=== PATIENT | male | born 1980 ===

== ENCOUNTER 2021-08-01 07:45 | Outpatient (REF) | payer OTHER, SELFPAY ==
[2021-08-01 08:02] LABS: MANUAL DIFF FLAG NO
[2021-08-01 08:18] LABS: Basophils Percent Auto 0.6 % (0-2); Eosinophils Absolute Auto 0.2 X10*3/uL (0.0-0.4); Eosinophils Percent Auto 2.2 % (0-4); Hemoglobin 16.1 g/dl (14.0-18.0); Imm Gran Abs Auto 0.03 X10*3/uL (0.00-0.03); Imm Gran Pct Auto 0.4 % (0.0-0.4); Lymphocytes Absolute Auto 2.1 X10*3/uL (1.2-4.9); Lymphocytes Percent Auto 30.6 % (20-40); Mean Corpuscular HGB Conc 33.5 g/dl (31.0-36.0); Mean Corpuscular Hemoglobin 29.8 pg (27.0-33.0); Mean Corpuscular Volume 88.7 fL (80.0-98.0); Mean Platelet Volume 8.7 fL (9.4-12.4); Monocytes Absolute Auto 0.4 X10*3/uL (0.1-1.2); Monocytes Percent Auto 6.4 % (2-11); Neutrophils Absolute Auto 4.1 x10*3/uL (2.0-8.3); Neutrophils Percent Auto 59.8 % (45-73); Platelet Count 219 X10*3/uL (160-400); Red Blood Count 5.41 X10*6/uL (4.60-5.80); Red Cell Distribution Width 12.1 % (11.0-16.0); White Blood Count 6.9 X10*3/uL (4.8-10.8)
[2021-08-01 08:31] LABS: Estimated Average Glucose 123 mg/dL; Hemoglobin A1c % 5.9 %
[2021-08-01 08:44] LABS: Alanine Aminotransferase 44 U/L (0-40); Albumin Level 3.9 g/dL (3.5-5.0); Alkaline Phosphatase 82 U/L (39-117); Anion Gap 14 (12-20); Aspartate Amino Transferase 29 U/L (5-37); Bilirubin Total 1.2 mg/dL (0.0-1.0); Blood Urea Nitrogen 12 mg/dL (9-16); Calcium 8.8 mg/dL (8.4-10.2); Carbon Dioxide 27 mmol/L (22-29); Chloride 104 mmol/L (96-108); Cholesterol 159 mg/dL; Estimated Glomerular Filt Rate > 60; Glucose Fasting 137 mg/dL (60-99); HDL Cholesterol 33 mg/dL; LDL Cholesterol Calculated 102 mg/dl; Potassium 3.9 mmol/L (3.3-5.1); Sodium 141 mmol/L (135-145); Triglycerides 124 mg/dL
[2021-08-01 09:07] LABS: TSH reflex Free T4 1.26 uIU/mL (0.32-4.0)
[2021-08-03 08:20] LABS: Folate 13.3 ng/mL (> or = 4.0); Vitamin B12 238 pg/mL (200-900)
[2021-08-06 14:41] LABS: Vitamin D 25-OH, D2 <4 ng/mL; Vitamin D 25-OH, D3 21 ng/mL; Vitamin D 25-OH, Total 21 ng/mL (30-100)
== END 2021-08-01 07:46 | disposition home or self-care (01) ==
LOC: HO.LAB 07:45
PROVIDERS: Visit Provider Nurse Practitioner Acute Care
DX: G25.2 Other specified forms of tremor (principal)
CPT/HCPCS: 36415; 80053; 80061; 82306; 82607; 82746; 83036; 84443; 85025

== ENCOUNTER 2021-10-03 10:58 | Outpatient (REF) | payer OTHER, SELFPAY ==
[2021-10-08 12:51] LABS: Testosterone, Total 508 ng/dL (250-1100)
== END 2021-10-03 10:59 | disposition home or self-care (01) ==
LOC: HO.HMGCLDS 10:58
PROVIDERS: PCP Internal Medicine; Visit Provider Nurse Practitioner Acute Care
DX: R68.82 Decreased libido (principal)
CPT/HCPCS: 36415; 84403

== ENCOUNTER 2022-06-06 21:21 | Observation (INO) | payer OTHER, SELFPAY ==
[2022-06-06 21:43] VITALS: BP 162/103; PULSE 95; RESP 18; TEMP 37.6; O2SAT 97; BMI 29.5
[2022-06-06 21:59] LABS: MANUAL DIFF FLAG NO
[2022-06-06 22:00] LABS: Basophils Absolute Auto 0.1 X10*3/uL (0.0-0.2); Basophils Percent Auto 0.6 % (0-2); Eosinophils Absolute Auto 0.2 X10*3/uL (0.0-0.4); Eosinophils Percent Auto 1.9 % (0-4); Hematocrit 45.3 % (42.0-52.0); Hemoglobin 16.1 g/dl (14.0-18.0); Imm Gran Abs Auto 0.03 X10*3/uL (0.00-0.03); Imm Gran Pct Auto 0.4 % (0.0-0.4); Lymphocytes Absolute Auto 3.1 X10*3/uL (1.2-4.9); Lymphocytes Percent Auto 39.8 % (20-40); Mean Corpuscular HGB Conc 35.5 g/dl (31.0-36.0); Mean Corpuscular Hemoglobin 30.5 pg (27.0-33.0); Mean Corpuscular Volume 85.8 fL (80.0-98.0); Mean Platelet Volume 9.8 fL (9.4-12.4); Monocytes Absolute Auto 0.5 X10*3/uL (0.1-1.2); Monocytes Percent Auto 6.3 % (2-11); Neutrophils Absolute Auto 3.9 x10*3/uL (2.0-8.3); Platelet Count 212 X10*3/uL (160-400); Red Blood Count 5.28 X10*6/uL (4.60-5.80); Red Cell Distribution Width 11.9 % (11.0-16.0); White Blood Count 7.7 X10*3/uL (4.8-10.8)
[2022-06-06 22:07] LABS: Appearance Urine Clear; Color Urine Yellow; Glucose Urine UA >=1000 mg/dL (Negative); Leukocyte Esterase Urine Negative (Negative); Nitrite Urine Negative (Negative); PH 6.5 (5.0-9.0); Specific Gravity - Urine >= 1.030 (1.005-1.025); UMIC TRIGGER UACC YES; Urine Blood Negative (Negative); Urine Ketones 15 mg/dL (Negative); Urine Protein Negative (Neg-Trace)
[2022-06-06 22:08] LABS: VBG Base Excess 3.7 mmol/L; VBG HCO3 29 mmol/L (22-26); VBG pCO2 47 mmHg; VBG pH 7.39 (7.32-7.43); VBG pO2 45 mmHg
[2022-06-06 22:09] LABS: Venous Blood Gas Refer to POC result
[2022-06-06 22:26] LABS: Bacteria Urine None Seen (None Seen); Hyaline Casts Urine 0-2 /LPF (0-2); RBC Urine 0-2 /HPF (0-2); Squamous Epithelial Cell Urine 0-2 /HPF (0-2); WBC Urine 0-5 /HPF (0-5)
[2022-06-06 22:28] LABS: Alanine Aminotransferase 188 U/L (0-40); Albumin Level 3.7 g/dL (3.5-5.0); Alkaline Phosphatase 166 U/L (39-117); Anion Gap 21 (12-20); Aspartate Amino Transferase 103 U/L (5-37); Bilirubin Total 0.7 mg/dL (0.0-1.0); Blood Urea Nitrogen 14 mg/dL (9-16); Calcium 8.6 mg/dL (8.4-10.2); Carbon Dioxide 18 mmol/L (22-29); Chloride 98 mmol/L (96-108); Creatinine Clr Calc Pharmacy 79.3; Estimated Glomerular Filt Rate 58; Glucose Random 506 mg/dL (60-115); Lipase 82 U/L (8-78); Potassium 5.1 mmol/L (3.3-5.1); Sodium 132 mmol/L (135-145); Total Protein 7.7 g/dL (6.5-8.0)
[2022-06-06 23:15] VITALS: BP 141/93; PULSE 88; RESP 18; TEMP 37; O2SAT 96
[2022-06-06 23:16] LABS: Glucose, Whole Blood 466 mg/dL (60-115)
--- NOTE | 2022-06-07 00:02 | ED_ITS ---
HPI - General Adult General Chief complaint: General Medical Stated complaint: High Blood Sugar Time Seen by Provider: 06/06/22 22:56 Source: patient History of Present Illness HPI narrative: 41-year-old male with past medical history of hypertension who presents to the emergency department tonight complaining of elevated blood sugar. Patient states over the past several weeks, he has noted increased urination, as well as increased thirst. 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 Onset (ago): week(s) Severity: moderate Associated symptoms: denies other symptoms Related Data Previous Rx's Medication Instructions Recorded acetaminophen 500 mg tablet 1,000 mg PO Q6H PRN pain #42 tabs 07/29/21 lidocaine 5 % topical patch 1 patch topical DAILY PRN pain 07/29/21 (scale score 7-10) #15 ea cholecalciferol (vitamin D3) 50 50 mcg PO DAILY #30 caps 09/29/21 mcg (2,000 unit) capsule finasteride 5 mg tablet 5 mg PO DAILY #30 tabs 09/29/21 hydroxyzine HCl 25 mg tablet 25 mg PO TID PRN anxiety #42 tabs 09/29/21 ibuprofen 800 mg tablet 800 mg PO Q8H PRN pain #14 tabs 09/29/21 hydrochlorothiazide 12.5 mg tablet 12.5 mg PO DAILY #30 tabs 01/26/22 Allergies Allergy/AdvReac Type Severity Reaction Status Date / Time No Known Allergies Allergy Verified 09/29/21 15:22 Review of Systems Constitutional: Constitutional: Denies chills, Denies excessive sweating, Denies fatigue, Denies fever(s) and Reports weight loss Eyes: Eyes: Reports blurry vision ENT: Reports system reviewed and no additional complaints, except as documented Cardiovascular: Cardiovascular: Denies chest pain, Denies syncope, Denies irregular heart rhythm, Denies lightheadedness and Denies dyspnea Respiratory: Respiratory: Denies cough and Denies dyspnea Gastrointestinal: Gastrointestinal: Denies abdominal pain, Denies diarrhea, Denies nausea and Denies vomiting Genitourinary: Genitourinary: Reports urinary frequency Musculoskeletal: Musculoskeletal: Reports no additional musculoskeletal complaints Neurologic: Denies Abnormal speech present, Denies confusion, Denies syncope, Denies convulsions and Denies seizure-like activity Psychiatric: Psychiatric: Denies confusion Endocrine: Endocrine: Denies excessive sweating and Denies fatigue [facility] Past Medical History Surgical History No pertinent past surgical history Family History Family History Father Hypertension Mother No problems noted. Brother No problems noted. Brother No problems noted. Brother No problems noted. Brother No problems noted. Social History Social History Housing: House Alcohol intake: current Alcohol intake frequency: does not drink Patient Tobacco Use Status: Never used Tobacco Smoked in Last 30 Days: No Second Hand Smoke Exposure: No Use of substances other than those prescribed or required for medical reasons: No Advance Directives: No service: No Current occupational status: employed Cognitive needs: No Hearing needs: No Vision needs: No Physical Exam ED Vital Signs: Vital Signs - 24 hr 06/06/22 21:43 06/06/22 23:15 06/07/22 00:40 Temperature 99.7 F 98.6 F 97.6 F Pulse Rate 95 88 81 Respiratory Rate 18 18 17 Blood Pressure 162/103 H 141/93 H 136/87 Pulse Oximetry 97 96 96 Oxygen Delivery Method Room Air Room Air Room Air 06/07/22 02:07 06/07/22 02:27 Temperature 97.6 F 98.0 F Pulse Rate 81 80 Respiratory Rate 17 18 Blood Pressure 129/79 128/93 H Pulse Oximetry 96 95 Oxygen Delivery Method Room Air Room Air BMI result Body Mass Index 29.5 Mild hypertension is noted at 162/103 Const General: cooperative, comfortable and no acute distress; No confusion Nutritional Appearance: overweight Orientation/consciousness: patient oriented x3 and No confusion [facility] Head: Yes normal to inspection, Yes normocephalic and Yes atraumatic Ears: hearing grossly normal bilaterally and external ears normal General nose exam: Normal external nose present Face and sinus: Yes normal facial exam Mouth: Normal oral and palatal mucosa present Eyes Eyelids: Yes eyelids normal Conjunctivae: conjunctivae normal Sclerae: sclerae normal Pupils: Equal, round and reactive pupils present EOM: EOMs intact bilaterally Neck Neck: Yes normal visual inspection and Yes full ROM Chest Chest palpation & inspection: normal inspection of the chest Resp Effort & Inspection: normal respiratory effort, no cough, not labored and no stridor Auscultation: clear to auscultation bilaterally and no wheezes Cardio Rate: regular rate Rhythm: regular rhythm GI Inspection: Yes normal to inspection Palpation (GI): nontender Back/Spine/Pelvis Cervical Spine: normal cervical lordosis and cervical ROM normal Thoracic/Lumbar Spine: thoracic and lumbar spine normal to inspection Skin General skin exam: no rashes or lesions noted, no erythema, no mottling and no pallor Neuro General: patient oriented x3 and No confusion Cranial nerves: Yes CN's II-XII intact bilaterally, Yes Equal, round and reactive pupils present and Yes Bilaterally intact EOM present Speech: No Abnormal speech present Extrem General: Yes normal to inspection, Yes full ROM, No cyanosis and No edema Medications Administered Discontinued Medications Generic Name Dose Route Start Last Admin Trade Name Freq PRN Reason Stop Dose Admin Sodium Chloride 1,000 mls @ 2,000 mls/hr 06/06/22 23:56 06/07/22 00:44 Ns IV 06/07/22 00:25 2,000 mls/hr .Q30M ONE Administration Insulin Human Lispro 10 unit 06/07/22 01:08 06/07/22 01:30 Insulin Lispro 100 Unit/Ml 3 Ml Vial SUBCUT 06/07/22 01:09 10 unit ONCE ONE Administration Insulin Human Regular 9 unit 06/07/22 01:06 06/07/22 01:28 Insulin Regular, Human 100 Unit/Ml 3 Ml Vial 0.1 unit/kg (9 unit) 06/07/22 01:07 9 unit IVPUSH Administration ONCE ONE Medical Decision Making [facility] Narrative Medical decision making narrative: 41-year-old male new onset adult diabetes presented initially with very elevated blood sugar and a borderline anion gap. The patient was given 2 L of IV fluids as well as subcu insulin. His blood sugar did decrease to a fingerstick of 334, however, being a new diabetic and somewhat dehydrated as evidenced by specific gravity greater than 1.030 on urinalysis, he will be admitted to the hospital for additional management. Medical Records Medical records narrative: No medical records to evaluate Lab Data Lab results reviewed: Yes I reviewed the patient's lab results. Lab results narrative: Labs of note are a sodium of 132 Na CO2 of 18. The patient's blood sugar is 506. The venous blood gas does show a normal pH, and the urine shows only 15 mg/dL ketones, both of which would suggest that this is not DKA although the patient's CO2 of 18 as well as an elevated anion gap are concerning. Result diagrams: 06/06/22 21:55 06/06/22 21:55 Labs: Lab Results 06/06/22 06/06/22 06/06/22 Range/Units 21:55 21:55 22:00 WBC 7.7 (4.8-10.8) X10*3/uL RBC 5.28 (4.60-5.80) X10*6/uL Hgb 16.1 (14.0-18.0) g/dl Hct 45.3 (42.0-52.0) % MCV 85.8 (80.0-98.0) fL MCH 30.5 (27.0-33.0) pg MCHC 35.5 (31.0-36.0) g/dl RDW 11.9 (11.0-16.0) % Plt Count 212 (160-400) X10*3/uL MPV 9.8 (9.4-12.4) fL Immature Gran % (Auto) 0.4 (0.0-0.4) % Neut % (Auto) 51.0 (45-73) % Lymph % (Auto) 39.8 (20-40) % [place] % (Auto) 6.3 (2-11) % Eos % (Auto) 1.9 (0-4) % Baso % (Auto) 0.6 (0-2) % Lymph # (Auto) 3.1 (1.2-4.9) X10*3/uL [place] # (Auto) 0.5 (0.1-1.2) X10*3/uL Eos # (Auto) 0.2 (0.0-0.4) X10*3/uL Baso # (Auto) 0.1 (0.0-0.2) X10*3/uL Abs Immat Gran (auto) 0.03 (0.00-0.03) X10*3/uL Absolute Neuts (auto) 3.9 (2.0-8.3) x10*3/uL Absolute Nucleated RBC 0.000 (0.0-0.012) X10*3/uL Nucleated RBC % (auto) 0.0 (0.0-0.2) /100WBC VBG pH (7.32-7.43) VBG pCO2 mmHg VBG pO2 mmHg VBG HCO3 (22-26) mmol/L VBG O2 Saturation % VBG Base Excess mmol/L Sodium 132 L (135-145) mmol/L Potassium 5.1 D (3.3-5.1) mmol/L Chloride 98 (96-108) mmol/L Carbon Dioxide 18 L (22-29) mmol/L Anion Gap 21 H (12-20) BUN 14 (9-16) mg/dL Creatinine 1.35 (0.5-1.4) mg/dL Estim Creat Clear Calc 79.3 Estimated GFR 58 POC Glucose (60-115) mg/dL Random Glucose 506 H* (60-115) mg/dL Calcium 8.6 (8.4-10.2) mg/dL Magnesium 2.0 (1.6-2.6) mg/dL Total Bilirubin 0.7 (0.0-1.0) mg/dL AST 103 H (5-37) U/L ALT 188 H (0-40) U/L Alkaline Phosphatase 166 H D (39-117) U/L Total Protein 7.7 (6.5-8.0) g/dL Albumin 3.7 (3.5-5.0) g/dL Lipase 82 H (8-78) U/L Urine Color Yellow Urine Appearance Clear Urine pH 6.5 (5.0-9.0) Ur Specific [place] >= 1.030 H (1.005-1.025) Urine Protein Negative (Neg-Trace) mg/dL Urine Glucose (UA) >=1000 H (Negative) mg/dL Urine Ketones 15 (Negative) mg/dL Urine Blood Negative (Negative) Urine Nitrite Negative (Negative) Ur Leukocyte Esterase Negative (Negative) Urine RBC 0-2 (0-2) /HPF Urine WBC 0-5 (0-5) /HPF Ur Squamous Epith Cells 0-2 (0-2) /HPF Urine Bacteria None Seen (None Seen) Hyaline Casts 0-2 (0-2) /LPF 06/06/22 06/06/22 06/07/22 Range/Units 22:01 23:12 02:25 WBC (4.8-10.8) X10*3/uL RBC (4.60-5.80) X10*6/uL Hgb (14.0-18.0) g/dl Hct (42.0-52.0) % MCV (80.0-98.0) fL MCH (27.0-33.0) pg MCHC (31.0-36.0) g/dl RDW (11.0-16.0) % Plt Count (160-400) X10*3/uL MPV (9.4-12.4) fL Immature Gran % (Auto) (0.0-0.4) % Neut % (Auto) (45-73) % Lymph % (Auto) (20-40) % [place] % (Auto) (2-11) % Eos % (Auto) (0-4) % Baso % (Auto) (0-2) % Lymph # (Auto) (1.2-4.9) X10*3/uL [place] # (Auto) (0.1-1.2) X10*3/uL Eos # (Auto) (0.0-0.4) X10*3/uL Baso # (Auto) (0.0-0.2) X10*3/uL Abs Immat Gran (auto) (0.00-0.03) X10*3/uL Absolute Neuts (auto) (2.0-8.3) x10*3/uL Absolute Nucleated RBC (0.0-0.012) X10*3/uL Nucleated RBC % (auto) (0.0-0.2) /100WBC VBG pH 7.39 (7.32-7.43) VBG pCO2 47 mmHg VBG pO2 45 mmHg VBG HCO3 29 H (22-26) mmol/L VBG O2 Saturation 73.0 % VBG Base Excess 3.7 mmol/L Sodium (135-145) mmol/L Potassium (3.3-5.1) mmol/L Chloride (96-108) mmol/L Carbon Dioxide (22-29) mmol/L Anion Gap (12-20) BUN (9-16) mg/dL Creatinine (0.5-1.4) mg/dL Estim Creat Clear Calc Estimated GFR POC Glucose 466 H* 334 H (60-115) mg/dL Random Glucose (60-115) mg/dL Calcium (8.4-10.2) mg/dL Magnesium (1.6-2.6) mg/dL Total Bilirubin (0.0-1.0) mg/dL AST (5-37) U/L ALT (0-40) U/L Alkaline Phosphatase (39-117) U/L Total Protein (6.5-8.0) g/dL Albumin (3.5-5.0) g/dL Lipase (8-78) U/L Urine Color Urine Appearance Urine pH (5.0-9.0) Ur Specific [place] (1.005-1.025) Urine Protein (Neg-Trace) mg/dL Urine Glucose (UA) (Negative) mg/dL Urine Ketones (Negative) mg/dL Urine Blood (Negative) Urine Nitrite (Negative) Ur Leukocyte Esterase (Negative) Urine RBC (0-2) /HPF Urine WBC (0-5) /HPF Ur Squamous Epith Cells (0-2) /HPF Urine Bacteria (None Seen) Hyaline Casts (0-2) /LPF Discharge Plan Discharge Clinical Impression: Diabetes Qualifiers: Diabetes mellitus type: type 2 Diabetes mellitus watermaster insulin use: without watermaster use Diabetes mellitus complication status: with hyperglycemia Qualified Code(s): E11.65 - Type 2 diabetes mellitus with hyperglycemia Patient Disposition: Admitted As Inpatient
[2022-06-07 00:40] VITALS: BP 136/87; PULSE 81; RESP 17; TEMP 36.4; O2SAT 96
[2022-06-07] MEDS: 0.9 % Sodium Chloride 1,000 ML 2000 ML IV (00:44)
--- NOTE | 2022-06-07 01:02 | PC.NURSE ---
Pt aox4. No apparent distress noted. POC 466. MD aware. Pt aware of plan of care.
[2022-06-07] MEDS: Insulin Regular, Human 100 UNIT/ML 3 ML VIAL 9 UNIT IVPUSH (01:28)
[2022-06-07] MEDS: Insulin Lispro 100 UNIT/ML 3 ML VIAL 10 UNIT SUBCUT (01:30)
[2022-06-07 02:07] VITALS: BP 129/79; PULSE 81; RESP 17; TEMP 36.4; O2SAT 96
[2022-06-07 02:27] VITALS: BP 128/93; PULSE 80; RESP 18; TEMP 36.7; O2SAT 95
[2022-06-07 02:32] LABS: Glucose, Whole Blood 334 mg/dL (60-115)
--- NOTE | 2022-06-07 03:17 | P.HPHOSP_ITS ---
History of Present Illness Date of Service: 06/07/22 Chief Complaint: Hyperglycemia This is a 41-year-old male, not on prescription medications, history of hypertension presents to the emergency department with complaints of high blood sugar. Patient states he has been having increased thirst, increased urination over the last 2-3 weeks. He has also noticed weight loss. Patient went to [facility] to check his blood sugar as recommended by his mother and his blood sugar was 600. No history of diabetes. Patient states he has to take a medication for high blood pressure but he ran out of it a year ago and has stopped taking it since. Does complain of occasional blurry vision. Denies fever, chills, nausea, vomiting, abdominal pain, chest pain, shortness a breath, palpitations, changes in bowel habits. Does have family history of diabetes. In the emergency department, his blood sugars were noted to be 500s. Review of Systems Constitutional: Constitutional: Reports lethargy and Reports weight loss Cardiovascular: Cardiovascular: Reports no additional cardiovascular complaints Respiratory: Respiratory: Reports no additional respiratory complaints Endocrine: Endocrine: Reports polydipsia and Reports polyuria [facility] Medical History Hypertension Functional capacity: independent ambulation Family History Father Hypertension Mother No problems noted. Brother No problems noted. Brother No problems noted. Brother No problems noted. Brother No problems noted. Surgical History No pertinent past surgical history Social History Housing: House Alcohol intake: current Alcohol intake frequency: does not drink Patient Tobacco Use Status: Never used Tobacco Smoked in Last 30 Days: No Second Hand Smoke Exposure: No Use of substances other than those prescribed or required for medical reasons: No Advance Directives: No service: No Current occupational status: employed Cognitive needs: No Hearing needs: No Vision needs: No Meds Allergies Allergy/AdvReac Type Severity Reaction Status Date / Time No Known Allergies Allergy Verified 09/29/21 15:22 Active Medications: Current Medications Dextrose (Dextrose 50 % 25 Gm/50 Ml Syringe) 25 gm IVPUSH Q15M PRN; Protocol PRN Reason: per Hypoglycemia Standing Ord. Glucose (Glucose Gel 15 Gm Gel..Gram.) 15 gm PO Q15M PRN; Protocol PRN Reason: per Hypoglycemia Standing Ord. Insulin Glargine (Insulin Glargine,Hum.Rec.Anlog 100 Unit/Ml 10 Ml Vial) 15 unit SUBCUT BEDTIME JEMMA Insulin Human Lispro (Insulin Lispro 100 Unit/Ml 3 Ml Vial) 0 unit SUBCUT QIDACHS JEMMA; Protocol Physical Exam Vital Signs and Narrative: Vital Signs: Last Vital Signs Temp 98.0 F 06/07/22 02:27 Pulse 80 06/07/22 02:27 Resp 18 06/07/22 02:27 BP 128/93 H 06/07/22 02:27 Pulse Ox 95 06/07/22 02:27 O2 Del Method 06/07/22 02:27 BMI result Body Mass Index 29.5 Middle-aged male lying in bed in no distress Neck supple, no JVD Regular rate and rhythm, S1-S2 heard Regular breath sounds bilaterally, no wheezing or crackles appreciated Abdomen soft nontender, no guarding, no rigidity Patient is awake, alert and oriented to self, place, time and person ; no focal motor deficit Psych: Normal mood No pedal edema Results Labs CBC and Chem 7: 06/06/22 21:55 06/06/22 21:55 Labs: Laboratory Results - last 24 hr 06/06/22 06/06/22 06/06/22 21:55 21:55 22:00 MCV 85.8 MCH 30.5 MCHC 35.5 RDW 11.9 Plt Count 212 MPV 9.8 Immature Gran % (Auto) 0.4 Neut % (Auto) 51.0 Lymph % (Auto) 39.8 [place] % (Auto) 6.3 Eos % (Auto) 1.9 Baso % (Auto) 0.6 Lymph # (Auto) 3.1 [place] # (Auto) 0.5 Eos # (Auto) 0.2 Baso # (Auto) 0.1 Abs Immat Gran (auto) 0.03 Absolute Neuts (auto) 3.9 Absolute Nucleated RBC 0.000 Nucleated RBC % (auto) 0.0 VBG pH VBG pCO2 VBG pO2 VBG HCO3 VBG O2 Saturation VBG Base Excess Anion Gap 21 H Estim Creat Clear Calc 79.3 Estimated GFR 58 POC Glucose Random Glucose 506 H* Calcium 8.6 Magnesium 2.0 Total Bilirubin 0.7 AST 103 H ALT 188 H Alkaline Phosphatase 166 H D Total Protein 7.7 Albumin 3.7 Lipase 82 H Urine Color Yellow Urine Appearance Clear Urine pH 6.5 Ur Specific [place] >= 1.030 H Urine Protein Negative Urine Glucose (UA) >=1000 H Urine Ketones 15 Urine Blood Negative Urine Nitrite Negative Ur Leukocyte Esterase Negative Urine RBC 0-2 Urine WBC 0-5 Ur Squamous Epith Cells 0-2 Urine Bacteria None Seen Hyaline Casts 0-2 06/06/22 06/06/22 06/07/22 22:01 23:12 02:25 MCV MCH MCHC RDW Plt Count MPV Immature Gran % (Auto) Neut % (Auto) Lymph % (Auto) [place] % (Auto) Eos % (Auto) Baso % (Auto) Lymph # (Auto) [place] # (Auto) Eos # (Auto) Baso # (Auto) Abs Immat Gran (auto) Absolute Neuts (auto) Absolute Nucleated RBC Nucleated RBC % (auto) VBG pH 7.39 VBG pCO2 47 VBG pO2 45 VBG HCO3 29 H VBG O2 Saturation 73.0 VBG Base Excess 3.7 Anion Gap Estim Creat Clear Calc Estimated GFR POC Glucose 466 H* 334 H Random Glucose Calcium Magnesium Total Bilirubin AST ALT Alkaline Phosphatase Total Protein Albumin Lipase Urine Color Urine Appearance Urine pH Ur Specific [place] Urine Protein Urine Glucose (UA) Urine Ketones Urine Blood Urine Nitrite Ur Leukocyte Esterase Urine RBC Urine WBC Ur Squamous Epith Cells Urine Bacteria Hyaline Casts Assessment and Plan (1) Diabetes mellitus, new onset: Status: Acute (2) Hypertension: Status: Acute Plan This is a 41-year-old male, not on prescription medications, history of hypertension presents to the emergency department with complaints of high blood sugar. #. New onset diabetes milletus with hyperglycemia -will admit patient for close monitoring of blood sugar levels. Initiating Lantus 15 units at bedtime with Accu-Cheks and sliding scale insulin before meals and at bedtime. Resuscitated with IV crystalloids in the ER. Consulted Nutrition for Diabetes Education. Will need close outpatient follow-up. Obtaining A1c and lipid panel. #. H/o of HTN -previously on antihypertensives but stopped a year ago as he ran out of it. Monitor BP and initiate antihypertensive accordingly DVT prophylaxis: None. Patient is ambulatory Diabetic diet Full code Quality Stroke Does the patient have a stroke diagnosis?: No VTE Prior VTE?: No VTE Risk Level:: Medical - moderate - high VTE Device Contraindication: Treatment Not Indicated VTE Drug Contraindication: Treatment Not Indicated
[2022-06-07 03:32] LABS: Cholesterol 147 mg/dL; HDL Cholesterol 25 mg/dL; LDL Cholesterol Calculated 44 mg/dl; Triglycerides 390 mg/dL
[2022-06-07 03:45] LABS: Basophils Percent Auto 0.6 % (0-2); Eosinophils Absolute Auto 0.2 X10*3/uL (0.0-0.4); Eosinophils Percent Auto 2.9 % (0-4); Hematocrit 41.3 % (42.0-52.0); Hemoglobin 14.6 g/dl (14.0-18.0); Imm Gran Abs Auto 0.02 X10*3/uL (0.00-0.03); Imm Gran Pct Auto 0.3 % (0.0-0.4); Lymphocytes Percent Auto 41.6 % (20-40); MANUAL DIFF FLAG NO; Mean Corpuscular HGB Conc 35.4 g/dl (31.0-36.0); Mean Corpuscular Hemoglobin 30.4 pg (27.0-33.0); Mean Corpuscular Volume 85.9 fL (80.0-98.0); Mean Platelet Volume 9.6 fL (9.4-12.4); Monocytes Absolute Auto 0.6 X10*3/uL (0.1-1.2); Monocytes Percent Auto 7.9 % (2-11); Neutrophils Absolute Auto 3.4 x10*3/uL (2.0-8.3); Neutrophils Percent Auto 46.7 % (45-73); Platelet Count 178 X10*3/uL (160-400); Red Blood Count 4.81 X10*6/uL (4.60-5.80); Red Cell Distribution Width 11.9 % (11.0-16.0); White Blood Count 7.2 X10*3/uL (4.8-10.8)
[2022-06-07] MEDS: Insulin Glargine,Hum.rec.anlog 100 UNIT/ML 10 ML VIAL 15 UNIT SUBCUT (03:49)
[2022-06-07 03:53] LABS: Glucose, Whole Blood 321 mg/dL (60-115)
[2022-06-07 03:57] VITALS: BP 121/69; PULSE 81; RESP 17; TEMP 36.4; O2SAT 96
[2022-06-07 07:09] LABS: Glucose, Whole Blood 294 mg/dL (60-115)
[2022-06-07 07:36] VITALS: BP 132/85; PULSE 76; RESP 16; TEMP 36.7; O2SAT 95
[2022-06-07 08:03] LABS: COVID-19 Test Negative (Negative); IDNOW Serial# 16C4AD1C
[2022-06-07 08:08] LABS: Estimated Average Glucose 301 mg/dL; Hemoglobin A1c % 12.1 %
--- NOTE | 2022-06-07 08:21 | PHA.MEDREC ---
Pharmacy Consult ? Medication Reconciliation Pharmacy has completed the medication reconciliation.Patient states he ran out of refills on all of his regular maintenance medications and stopped taking them over 5 months ago. He is only using acetaminophen and ibuprofen at home.
[2022-06-07] MEDS: Insulin Lispro 100 UNIT/ML 3 ML VIAL SUBCUT ×2 (08:27→13:41)
[2022-06-07] MEDS: 0.9 % Sodium Chloride Flush 3 ML SYRINGE IVFLUSH (08:28)
[2022-06-07 12:05] LABS: Glucose, Whole Blood 298 mg/dL (60-115)
[2022-06-07 12:08] VITALS: BP 140/91; PULSE 81; RESP 16; TEMP 36.7; O2SAT 94
[2022-06-07] MEDS: Acetaminophen 325 MG TABLET 650 MG PO (12:11)
[2022-06-07] MEDS: ondansetron HCL 4 MG/2 ML VIAL IVPUSH (12:12)
--- NOTE | 2022-06-07 12:15 | PC.NURSE ---
pt brought over from ed to overflow bed 11 report obtained from dori, this nurse resumed care at 1205, patient currently a&ox3, family at bedside, vss, lungs clear, pt c/o nausea and headache 01/01, pt medicated with zofran and tylenol per order, poc [id number]- will medicate with coverage when lunches arrive, call merchant within reach, will continue to monitor
--- NOTE | 2022-06-07 13:10 | MHC.CLN ---
NUTRITION CONSULT FOR DIABETIC EDUCATION. NEW DX DIABETES. PATIENT STATED THAT DOES NOT KNOW ABOUT DIABETIC DIET. PROVIDED HANDOUT FOR HEALTHY MEAL PLANNING. DISCUSSED EATING 3 MEALS PER DAY, HS SNACK, AND HIGH SUGAR FOODS. PATIENT COULD BENEFIT FROM OUTPATIENT DIABETES EDUCATION.
--- NOTE | 2022-06-07 14:20 | P.DS_ITS ---
DS: Providers Provider Date of Service: 06/07/22 Date of admission: 06/07/22 03:17 Date of discharge: 06/07/22 Primary care physician: Huber Hill MD Admitting clinician: Kenney Ricks Attending physician on admission: Kenney Ricks Attending physician on discharge: Eliane Ayala Discharging clinician: Ann Zafar DS: Diagnosis Discharge Diagnosis (1) Diabetes mellitus, new onset: Status: Acute (2) Hypertension: Status: Acute DS: Summary Hospital Course Hospital Course: HPI on admission by Dr. Ricks 06/06/2022: This is a 41-year-old male, not on prescription medications, history of hypertension presents to the emergency department with complaints of high blood sugar.? Patient states he has been having increased thirst, increased urination over the last 2-3 weeks.? He has also noticed weight loss.? Patient went to [facility] to check his blood sugar as recommended by his mother and his blood sugar was 600.? No history of diabetes.? Patient states he has to take a medication for high blood pressure but he ran out of it a year ago and has stopped taking it since.? Does complain of occasional blurry vision.? Denies fever, chills, nausea, vomiting, abdominal pain, chest pain, shortness a breath, palpitations, changes in bowel habits.? Does have family history of diabetes. In the emergency department, his blood sugars were noted to be 500s. Hospital course: Hospital course uneventul patient required several doses regular/lispro insulin to improve hyperglycemia as well as 15 units lantus this morning. Patient was transitioned to sliding scale humalog with meals with improvement in glucose levels to 298. No hypoglycemia noted. Hgb A1c noted to be quite elevated at 12.1%. He was seen by nutrition and educated on diabetic diet as cornerstone of diabetes management. Also educated on risk of complications with uncontrolled diabetes. He was started on 10mg lisinopril for hypertension as well as renal protection with new dx type 2 diabetes. He has appt scheduled for diabetes education with community navigation on 06/09 at 11am at pcp office. He has been educated on glucometer and insulin use and is being discharged with lantus 15 untis daily and novolog on sliding scale. Follow up soon with pcp. Time spent discussing smoking cessation with patient: more than 10 minutes Time Spent with Patient Time attestation: Total time spent providing and/or coordinating discharge services: Discharge coordination time: Greater than 30 minutes Quality: Safe Use of Opioids Does Pt have an Active Cancer Diagnosis on the Problem List?: No Quality: Stroke Does the patient have a stroke diagnosis?: No Physical Exam Vital Signs: Vital Signs: Last Vital Signs Temp 98.0 F 06/07/22 12:08 Pulse 81 06/07/22 12:08 Resp 16 06/07/22 12:08 BP 140/91 H 06/07/22 12:08 Pulse Ox 94 06/07/22 12:08 O2 Del Method 06/07/22 12:08 BMI result Body Mass Index 29.5 Constitutional - Awake and Alert, No apparent distress Eyes - PERRLA, EOMI Cardiovascular - S1S2, RRR, No edema Respiratory - Normal lung expansion, Normal respiratory effort, No respiratory distress, CTA bilaterally Extremities - no calf tenderness bilaterally, no swelling Skin - Warm/Dry Neurological - Alert & oriented x3 Psychological - Appropriate affect DS: Data Data Completed and Pending Labs on day of discharge: Laboratory Results - last 24 hr 06/06/22 06/06/22 06/06/22 21:55 21:55 21:55 WBC 7.7 RBC 5.28 Hgb 16.1 Hct 45.3 MCV 85.8 MCH 30.5 MCHC 35.5 RDW 11.9 Plt Count 212 MPV 9.8 Immature Gran % (Auto) 0.4 Neut % (Auto) 51.0 Lymph % (Auto) 39.8 [place] % (Auto) 6.3 Eos % (Auto) 1.9 Baso % (Auto) 0.6 Lymph # (Auto) 3.1 [place] # (Auto) 0.5 Eos # (Auto) 0.2 Baso # (Auto) 0.1 Abs Immat Gran (auto) 0.03 Absolute Neuts (auto) 3.9 Absolute Nucleated RBC 0.000 Nucleated RBC % (auto) 0.0 VBG pH VBG pCO2 VBG pO2 VBG HCO3 VBG O2 Saturation VBG Base Excess Sodium 132 L Potassium 5.1 D Chloride 98 Carbon Dioxide 18 L Anion Gap 21 H BUN 14 Creatinine 1.35 Estim Creat Clear Calc 79.3 Estimated GFR 58 POC Glucose Random Glucose 506 H* Estimat Average Glucose 301 Hemoglobin A1c % 12.1 Calcium 8.6 Magnesium 2.0 Total Bilirubin 0.7 AST 103 H ALT 188 H Alkaline Phosphatase 166 H D Total Protein 7.7 Albumin 3.7 Triglycerides 390 Cholesterol 147 LDL Cholesterol, Calc 44 HDL Cholesterol 25 D Lipase 82 H Urine Color Urine Appearance Urine pH Ur Specific [place] Urine Protein Urine Glucose (UA) Urine Ketones Urine Blood Urine Nitrite Ur Leukocyte Esterase Urine RBC Urine WBC Ur Squamous Epith Cells Urine Bacteria Hyaline Casts COVID-19 (ROSANNA) COVID-19 Clin Com 06/06/22 06/06/22 06/06/22 22:00 22:01 23:12 WBC RBC Hgb Hct MCV MCH MCHC RDW Plt Count MPV Immature Gran % (Auto) Neut % (Auto) Lymph % (Auto) [place] % (Auto) Eos % (Auto) Baso % (Auto) Lymph # (Auto) [place] # (Auto) Eos # (Auto) Baso # (Auto) Abs Immat Gran (auto) Absolute Neuts (auto) Absolute Nucleated RBC Nucleated RBC % (auto) VBG pH 7.39 VBG pCO2 47 VBG pO2 45 VBG HCO3 29 H VBG O2 Saturation 73.0 VBG Base Excess 3.7 Sodium Potassium Chloride Carbon Dioxide Anion Gap BUN Creatinine Estim Creat Clear Calc Estimated GFR POC Glucose 466 H* Random Glucose Estimat Average Glucose Hemoglobin A1c % Calcium Magnesium Total Bilirubin AST ALT Alkaline Phosphatase Total Protein Albumin Triglycerides Cholesterol LDL Cholesterol, Calc HDL Cholesterol Lipase Urine Color Yellow Urine Appearance Clear Urine pH 6.5 Ur Specific [place] >= 1.030 H Urine Protein Negative Urine Glucose (UA) >=1000 H Urine Ketones 15 Urine Blood Negative Urine Nitrite Negative Ur Leukocyte Esterase Negative Urine RBC 0-2 Urine WBC 0-5 Ur Squamous Epith Cells 0-2 Urine Bacteria None Seen Hyaline Casts 0-2 COVID-19 (ROSANNA) COVID-19 Clin Com 06/07/22 06/07/22 06/07/22 02:25 03:41 03:49 WBC 7.2 RBC 4.81 Hgb 14.6 Hct 41.3 L MCV 85.9 MCH 30.4 MCHC 35.4 RDW 11.9 Plt Count 178 MPV 9.6 Immature Gran % (Auto) 0.3 Neut % (Auto) 46.7 Lymph % (Auto) 41.6 H [place] % (Auto) 7.9 Eos % (Auto) 2.9 Baso % (Auto) 0.6 Lymph # (Auto) 3.0 [place] # (Auto) 0.6 Eos # (Auto) 0.2 Baso # (Auto) 0.0 Abs Immat Gran (auto) 0.02 Absolute Neuts (auto) 3.4 Absolute Nucleated RBC 0.000 Nucleated RBC % (auto) 0.0 VBG pH VBG pCO2 VBG pO2 VBG HCO3 VBG O2 Saturation VBG Base Excess Sodium Potassium Chloride Carbon Dioxide Anion Gap BUN Creatinine Estim Creat Clear Calc Estimated GFR POC Glucose 334 H 321 H Random Glucose Estimat Average Glucose Hemoglobin A1c % Calcium Magnesium Total Bilirubin AST ALT Alkaline Phosphatase Total Protein Albumin Triglycerides Cholesterol LDL Cholesterol, Calc HDL Cholesterol Lipase Urine Color Urine Appearance Urine pH Ur Specific [place] Urine Protein Urine Glucose (UA) Urine Ketones Urine Blood Urine Nitrite Ur Leukocyte Esterase Urine RBC Urine WBC Ur Squamous Epith Cells Urine Bacteria Hyaline Casts COVID-19 (ROSANNA) Global Weather 06/07/22 06/07/22 06/07/22 07:04 07:35 12:01 WBC RBC Hgb Hct MCV MCH MCHC RDW Plt Count MPV Immature Gran % (Auto) Neut % (Auto) Lymph % (Auto) [place] % (Auto) Eos % (Auto) Baso % (Auto) Lymph # (Auto) [place] # (Auto) Eos # (Auto) Baso # (Auto) Abs Immat Gran (auto) Absolute Neuts (auto) Absolute Nucleated RBC Nucleated RBC % (auto) VBG pH VBG pCO2 VBG pO2 VBG HCO3 VBG O2 Saturation VBG Base Excess Sodium Potassium Chloride Carbon Dioxide Anion Gap BUN Creatinine Estim Creat Clear Calc Estimated GFR POC Glucose 294 H 298 H Random Glucose Estimat Average Glucose Hemoglobin A1c % Calcium Magnesium Total Bilirubin AST ALT Alkaline Phosphatase Total Protein Albumin Triglycerides Cholesterol LDL Cholesterol, Calc HDL Cholesterol Lipase Urine Color Urine Appearance Urine pH Ur Specific [place] Urine Protein Urine Glucose (UA) Urine Ketones Urine Blood Urine Nitrite Ur Leukocyte Esterase Urine RBC Urine WBC Ur Squamous Epith Cells Urine Bacteria Hyaline Casts COVID-19 (ROSANNA) Negative COVIDComponentLab See Note Discharge Plan Discharge Anticipated Discharge Date/Time: 06/07/22 13:50 Patient Disposition: Home, Self-Care Discharge Diagnosis: new onset type 2 diabetes with hyperglycemia Referrals: Huber Hill MD [Primary Care Provider] - 1 Week Discharge Medications: New (DME) FreeStyle Lite Strips Strip Qty: 100 0RF Rx Instructions: Test four times a day or as directed. (DME) blood-glucose meter [FreeStyle Lite Meter] Kit Qty: 1 0RF Rx Instructions: As Directed alcohol swabs Pads, Medicated 1 pad TOPICAL QIDACHS Qty: 100 0RF Rx Instructions: Use four times a day or as directed. (DME) pen needle, diabetic 32 gauge x 1/4 needle Qty: 100 0RF Rx Instructions: Use four times a day or as directed. (DME) lancets [FreeStyle Lancets] 28 gauge misc Qty: 100 0RF Rx Instructions: Test four times a day or as directed. insulin aspart U-100 [Novolog Flexpen U-100 Insulin] 100 unit/mL (3 mL) insulin pen 1 sliding scale dose subcut USEASDIRECTD Qty: 15 0RF Rx Instructions: Check glucose before meal and use: 0 units if <150 2 units if 150-199 4 units if 200-249 6 units if 250-299 8 units if 300-349 10 units if 350-399 >400 call PCP insulin glargine [Lantus Solostar U-100 Insulin] 100 unit/mL (3 mL) insulin pen 15 unit subcut QAM Qty: 15 0RF lisinopril 10 mg tablet 10 mg PO DAILY Qty: 14 0RF Continued acetaminophen 500 mg tablet 1,000 mg PO Q6H PRN (Reason: pain) Qty: 42 0RF ibuprofen 800 mg tablet 800 mg PO Q8H PRN (Reason: pain) Qty: 14 0RF Discharge Orders: Discharge Order (Routine); Ordered 06/07/22 Ordered By: Ann Zafar Diet: Diabetic diet Activity on Discharge: As tolerated Stand Alone Forms: Patient Portal Discharge page Care Plan Goals: Improve glucose levels. Prevent hyperglycemia (high blood sugars) and hypoglycemia (low blood sugars less than 70) Health Concerns: Uncontrolled type 2 diabetes with A1c 12.1%, goal A1c <7.0% Hyperglycemia Hypertension Plan of Treatment: Type 2 diabetes- uncontrolled. Check your fasting glucose (right when you wake up before eating) and prior to every meal. Use lantus 15 units every morning. This is a long acting insulin. Check your sugar prior to every meal and use novolog on the sliding scale provided based off your glucose reaching. Novolog is fast acting insulin so you must take with a meal to prevent your sugars from going low. Symptoms of low blood sugar include blurred vision, sweats, aggitation, and lightheadedness. Diabetic diet is the cornerstone of management! you must control what you eat to manage your glucose levels. Use the tool the sourcing assistant gave you during your admission. Diabetes if left uncontrolled can cause debilitating complications. Follow soon and then every 3 months with your PCP until controlled. I have set you up with an appointment for diabetes education to help with further management on 06/[address] Hill's office. Return to the ED if glucose >500. I have also started you on lisinopril 10mg in the hospital to help with your blood pressure. You should continue taking this medicaiton every day to manage your blood pressure as well as to protect your kidneys given your diabetes diagnosis. Assessment: See above
[2022-06-07] MEDS: lisinopriL 10 MG TABLET PO (14:33)
== END 2022-06-07 14:50 | disposition home or self-care (01) ==
LOC: HO.ED 06-07 02:33 → HO.EDOVER 06-07 03:27 → HO.S3 06-07 08:12 → HO.EDOVER 06-07 10:25
PROVIDERS: Admitting Provider Student in an Organized Health Care Education/Training Program; Emergency Provider Emergency Medicine; PCP Internal Medicine; Visit Provider Physician Assistant
DX: E11.65 Type 2 diabetes mellitus with hyperglycemia (principal); I10 Essential (primary) hypertension; R35.0 Frequency of micturition; Z20.822 Contact with and (suspected) exposure to COVID-19; Z79.899 Other long term (current) drug therapy
CPT/HCPCS: 36415; 80053; 80061; 81001; 82803; 82947; 83036; 83690; 83735; 85025; 87635; 96374; 99218; 99285; J2405

== ENCOUNTER 2022-08-28 08:47 | Outpatient (REF) | payer OTHER, SELFPAY ==
[2022-08-28 09:01] LABS: MANUAL DIFF FLAG NO
[2022-08-28 10:08] LABS: Appearance Urine Cloudy; Color Urine Yellow; Glucose Urine UA Negative (Negative); Leukocyte Esterase Urine Trace (Negative); Nitrite Urine Negative (Negative); PH 7.5 (5.0-9.0); UMIC TRIGGER UACC YES; Urine Blood Negative (Negative); Urine Ketones Negative (Negative); Urine Protein Trace mg/dL (Neg-Trace)
[2022-08-28 10:08] LABS: Basophils Absolute Auto 0.1 X10*3/uL (0.0-0.2); Basophils Percent Auto 0.8 % (0-2); Eosinophils Absolute Auto 0.2 X10*3/uL (0.0-0.4); Eosinophils Percent Auto 3.2 % (0-4); Hematocrit 47.5 % (42.0-52.0); Imm Gran Abs Auto 0.04 X10*3/uL (0.00-0.03); Imm Gran Pct Auto 0.5 % (0.0-0.4); Lymphocytes Absolute Auto 2.2 X10*3/uL (1.2-4.9); Lymphocytes Percent Auto 29.5 % (20-40); Mean Corpuscular HGB Conc 33.7 g/dl (31.0-36.0); Mean Corpuscular Hemoglobin 29.8 pg (27.0-33.0); Mean Corpuscular Volume 88.5 fL (80.0-98.0); Monocytes Absolute Auto 0.5 X10*3/uL (0.1-1.2); Monocytes Percent Auto 6.9 % (2-11); Neutrophils Absolute Auto 4.3 x10*3/uL (2.0-8.3); Neutrophils Percent Auto 59.1 % (45-73); Platelet Count 233 X10*3/uL (160-400); Red Blood Count 5.37 X10*6/uL (4.60-5.80); Red Cell Distribution Width 12.1 % (11.0-16.0); White Blood Count 7.3 X10*3/uL (4.8-10.8)
[2022-08-28 10:13] LABS: Estimated Average Glucose 140 mg/dL; Hemoglobin A1c % 6.5 %
[2022-08-28 10:13] LABS: Bacteria Urine None Seen (None Seen); Hyaline Casts Urine 0-2 /LPF (0-2); RBC Urine 0-2 /HPF (0-2); Squamous Epithelial Cell Urine 0-2 /HPF (0-2); WBC Urine 0-5 /HPF (0-5)
[2022-08-28 11:04] LABS: Erythrocyte Sedimentation Rate 5 MM/HR (0-15)
[2022-08-28 12:16] LABS: Microalbum/Creatinine Ratio Ur 6.2 ug/mg cr
[2022-08-28 12:33] LABS: Alanine Aminotransferase 45 U/L (0-40); Albumin Level 3.9 g/dL (3.5-5.0); Alkaline Phosphatase 85 U/L (39-117); Anion Gap 15 (12-20); Aspartate Amino Transferase 36 U/L (5-37); Bilirubin Total 1.2 mg/dL (0.0-1.0); Blood Urea Nitrogen 12 mg/dL (9-16); C Reactive Protein 0.54 mg/dL (< or = 0.50); Calcium 8.8 mg/dL (8.4-10.2); Carbon Dioxide 26 mmol/L (22-29); Chloride 104 mmol/L (96-108); Cholesterol 160 mg/dL; Estimated Glomerular Filt Rate > 60; Gamma Glutamyl Transpeptidase 79 U/L (11-51); Glucose Fasting 108 mg/dL (60-99); HDL Cholesterol 35 mg/dL; LDL Cholesterol Calculated 106 mg/dl; Potassium 4.4 mmol/L (3.3-5.1); Rheumatoid Factor < 13.0 IU/mL (<15.0); Sodium 141 mmol/L (135-145); Total Protein 6.7 g/dL (6.5-8.0); Triglycerides 96 mg/dL
[2022-08-28 13:03] LABS: Folate 11.1 ng/mL (> or = 4.0); TSH reflex Free T4 1.26 uIU/mL (0.32-4.0); Vitamin B12 277 pg/mL (200-900); Vitamin D 25-OH Total 19.7 ng/mL (>30)
[2022-08-30 08:27] LABS: HBc Num1 0.08 S/CO (0.00-0.79); HBsAGNum1 0.34 S/CO (0.00-0.99); Hepatitis A Antibody IgM 0.18 Index (0-0.79); Hepatitis B Core Antibody Nonreactive (Nonreactive); Hepatitis B Surface Antigen Negative (Negative); ~HepC Num1 0.07 S/CO (0.00-0.79); ~Hepatitis A Antibody IgM Nonreactive (Nonreactive); ~Hepatitis B Surface Antibody NONREACTIVE (Nonreactive); ~Hepatitis C Antibody Nonreactive (Nonreactive)
[2022-08-31 16:19] LABS: Anti Nuclear Antibody Screen NEGATIVE (NEGATIVE)
== END 2022-08-28 08:48 | disposition home or self-care (01) ==
LOC: HO.LAB 08:47
PROVIDERS: PCP Internal Medicine; Visit Provider Internal Medicine
DX: E78.00 Pure hypercholesterolemia, unspecified (principal); E53.8 Deficiency of other specified B group vitamins; M79.641 Pain in right hand; M79.642 Pain in left hand; R79.89 Other specified abnormal findings of blood chemistry; E11.9 Type 2 diabetes mellitus without complications; E55.9 Vitamin D deficiency, unspecified; R30.0 Dysuria; I10 Essential (primary) hypertension
CPT/HCPCS: 36415; 80053; 80061; 81001; 81003; 82043; 82306; 82607; 82746; 82977; 83036; 84443; 85025; 85652; 86038; 86039; 86140; 86431; 86704; 86706; 86709; 86803; 87340

== ENCOUNTER 2023-09-06 09:41 | Outpatient (AMB) | payer OTHER, SELFPAY ==
[2023-09-06 09:42] VITALS: BP 128/84; PULSE 83; O2SAT 97; BMI 34.3
--- NOTE | 2023-09-06 09:42 | A.OFFPC_ITS ---
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 blood-glucose meter (FreeStyle Lite Meter kit) As Directed cholecalciferol (vitamin D3) 50 mcg PO DAILY 90 days gabapentin 100 mg PO BID 30 days ibuprofen 800 mg PO Q8H PRN lancets (FreeStyle Lancets) Test four times a day or as directed. Lantus Solostar U-100 Insulin (insulin glargine) 15 units (0.15 mL) subcut QAM 30 days NS lisinopril 10 mg PO DAILY 90 days magnesium oxide (MagOx) 400 mg PO DAILY 90 days pen needle, diabetic Use four times a day or as directed. Semglee(insulin glarg-yfgn)Pen (insulin glargine-yfgn) 15 units (0.15 mL) subcut QPM 90 days NS Tobacco use date assessed: 09/06/23 Dental Screening Dental Screen Date: 09/06/23 Did you have a dental visit in the last 12 months?: Yes Did you have a dental problem in the last 6 months where you did not have access to dental care?: No Was dental information given to patient?: Patient has dentist HPI DM Follow Up HPI Details Patient comes in today for his follow up visit States that he has been experiencing on and off vague chest pains at times lately Notes that these do not seem to be associated with activity or exertion He has also been experiencing increased pains in both hands lately and also in a few other joints, particularly his elbows, shoulders and knees He denies any recent injury or trauma to these joints He has also been experiencing recurrent/frequent tingling sensation and numbness in both feet and hands States that this is present throughout the day but the symptoms in his feet feel more pronounced at night and with prolonged standing at work He denies any headaches or dizziness Denies any increased SOB No nausea/vomiting, no abdominal pain No change in bowel habits noted He has no follow up labs done recently [facility] Medical History (Updated 04/29/24 @ 16:44 by Huber Hill MD) Essential hypertension Diabetes mellitus Mixed hyperlipidemia Elevated LFTs Obesity (BMI 30-39.9) Hypertension Vitamin D deficiency Surgical History No pertinent past surgical history Family History Father Hypertension Mother No problems noted. Brother No problems noted. Brother No problems noted. Brother No problems noted. Brother No problems noted. Social History Housing: House Alcohol intake: current Alcohol intake frequency: does not drink Patient Tobacco Use Status: Never used Tobacco e-Cigarette/Vaping Use: Never Used Second Hand Smoke Exposure: No service: No Current occupational status: employed Cognitive needs: No Hearing needs: No Vision needs: Yes Questionnaire PHQ-9 Over the last 2 weeks, how often have you been bothered by any of the following problems? 1. Little interest or pleasure in doing things: not at all 2. Feeling down, depressed, or hopeless: not at all 3. Trouble falling or staying asleep, or sleeping too much: not at all 4. Feeling tired or having little energy: not at all 5. Poor appetite or overeating: not at all 6. Feeling bad about yourself - or that you are a failure or have let yourself or your family down: not at all 7. Trouble concentrating on things, such as reading the newspaper or watching television: not at all 8. Moving or speaking so slowly that other people could have noticed. Or the opposite - being so fidgety or restless that you have been moving around a lot more than usual: not at all 9. Thoughts that you would be better off or of hurting yourself in some way: not at all Total score: 0 Depression Screening Interpretation: Negative Depression Screening Done: Yes 48878 - PHQ-9 Billing: Yes Source: Developed by Drs. Ayad Felipe, Yaritza Kaufman, Serjio Martinez and colleagues, with an educational hailey from [employer]. Thrive Questionnaire Date Thrive assessed: 09/06/23 I am a: Patient What is your living situation today?: I have a steady place to live Within the past 12 months, did the food you bought not last and you didn't have the money to get more?: Never true Within the past 12 months, did you worry whether your food would run out before you got money to buy more?: Never true Do you have trouble paying for medicines?: No Do you have trouble getting transportation to medical appointments?: No Do you have trouble paying your heating and electricity bill?: No Do you have trouble taking care of your child, family member or friend?: No Do you have trouble with day-to-day activities such as bathing, preparing meals, shopping, managing finances, etc.?: No Are you currently unemployed and looking for a job?: No Are you interested in more education?: No Please select the resources that you would like help with: None Currently or been in a relationship where the following occur: no concerns reported THRIVE Score: 0 AUDIT C Alcohol Use Questionnaire (AUDIT-C) 1. How often do you have a drink containing alcohol?: Never 3. How often do you have six or more drinks on one occasion?: Never Total Score: 0 Score Reviewed/Action Taken: Yes CATA-7 AMB Questionnaire CATA-7 Date CATA - 7 assessed: 09/06/23 Feeling nervous, anxious, or on edge: 3 = Nearly every day Not being able to stop or control worryin = Nearly every day Worrying too much about different things: 3 = Nearly every day Trouble relaxin = Nearly every day Being so restless that it is hard to sit still: 3 = Nearly every day Becoming easily annoyed or irritable: 3 = Nearly every day Feeling afraid as if something awful might happen: 0 = Not at all Total CATA-7 score (0-4 normal; 5-9 mild; 10-14 moderate; 15-21 severe): 18 Source: Developed by Yaritza WatkinsW. Mandeep, Serjio Martinez and colleagues, with an educational hailey from [employer]. Review of Systems Const Denies chills, Denies fatigue, Denies fever(s) and Denies headache(s) ENT Denies dysphagia, Denies dizziness, Denies otalgia, Denies headache(s), Denies neck pain, Denies odynophagia and Denies sore throat Card Reports chest pain (on and off vague chest pains that are not related to activity/exertion), Denies rapid heart rate, Denies irregular heart rhythm, Denies palpitations and Denies dyspnea Resp Denies chest congestion, Denies cough and Denies dyspnea GI Denies abdominal pain, Denies change in bowel habits, Denies constipation, Denies dysphagia, Denies heartburn, Denies diarrhea, Denies nausea, Denies odynophagia and Denies vomiting Denies difficulty urinating, Denies dysuria, Denies urinary frequency and Denies urinary incontinence Musc Denies back pain, Reports arthralgias (on and off in both hands and also a few other joints (knees, elbows)) and Denies neck pain Skin/Breast Denies rash Neuro Denies dizziness, Denies headache(s) and Reports paresthesias (recurrent in both hands and feet) Endo Denies fatigue and Denies palpitations Physical exam (Primary Care) Vital Signs: Last Vital Signs Pulse 83 09/06/23 09:42 BP 128/84 09/06/23 09:42 Pulse Ox 97 09/06/23 09:42 Oxygen Delivery Method Room Air 09/06/23 09:42 BMI result Body Mass Index 34.3 Tobacco/Smoking Status: Tobacco use Status Tobacco use date assessed 09/06/23 09/06/23 09:49 Patient Tobacco Use Status Never used Tobacco 09/06/23 09:43 e-Cigarette/Vaping Use Never Used 09/06/23 09:43 PHQ-9: PHQ-9 Score PHQ-9: Total score 0 11/04/23 12:02 Depression Screening Interpretation: Negative Thrive Assessment: Date of Thrive Assessment Date Thrive assessed 09/06/23 09/06/23 09:49 Currently or been in a relationship where the following occur: no concerns reported Const General: no acute distress and alert HENMT Ears: TM's normal bilaterally and EAC's normal Throat: Yes posterior oropharynx normal and Yes tonsils normal (no TP congestion) Neck Neck: Yes no lymphadenopathy and Yes supple Thyroid: Thyroid normal Resp Auscultation: clear to auscultation bilaterally, no rales and no wheezes Cardio Rate: regular rate Rhythm: regular rhythm Heart sounds: no murmurs GI Palpation (GI): Soft to palpation and nontender Auscultation: normal bowel sounds General: Yes no CVA tenderness Back/Spine/Pelvis Back: no CVA tenderness Thoracic/Lumbar Spine: No lumbar spinal tenderness Skin Rashes: no rashes Extrem General: Yes no clubbing, cyanosis or edema Coding Level of Care Code Est Pt Level 4 (16770) Diagnoses Chest pain, unspecified type R07.9 Chest pain type: unspecified Bilateral hand pain M79.641; M79.642 Arthralgia, unspecified joint M25.50 Joint pain location: unspecified Type 2 diabetes mellitus with hyperglycemia, with long-term current use of insulin E11.65; Z79.4 Diabetes mellitus type: type 2 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
== END 2023-09-06 10:56 | disposition home or self-care (01) ==
PROVIDERS: PCP Internal Medicine; Visit Provider Internal Medicine
DX: R07.9 Chest pain, unspecified (principal); M79.641 Pain in right hand; M79.642 Pain in left hand; M25.50 Pain in unspecified joint; E11.65 Type 2 diabetes mellitus with hyperglycemia; Z79.4 Long term (current) use of insulin; E78.2 Mixed hyperlipidemia; R20.2 Paresthesia of skin; R79.89 Other specified abnormal findings of blood chemistry; E55.9 Vitamin D deficiency, unspecified; E66.9 Obesity, unspecified
CPT/HCPCS: 99499

== ENCOUNTER 2023-09-10 07:52 | Outpatient (REF) | payer OTHER, SELFPAY ==
[2023-09-10 08:21] LABS: MANUAL DIFF FLAG NO
[2023-09-10 09:02] LABS: Basophils Absolute Auto 0.1 X10*3/uL (0.0-0.2); Basophils Percent Auto 0.6 % (0-2); Eosinophils Absolute Auto 0.2 X10*3/uL (0.0-0.4); Eosinophils Percent Auto 2.3 % (0-4); Hematocrit 46.8 % (42.0-52.0); Hemoglobin 16.6 g/dl (14.0-18.0); Imm Gran Abs Auto 0.03 X10*3/uL (0.00-0.03); Imm Gran Pct Auto 0.4 % (0.0-0.4); Lymphocytes Absolute Auto 2.2 X10*3/uL (1.2-4.9); Lymphocytes Percent Auto 27.4 % (20-40); Mean Corpuscular HGB Conc 35.5 g/dl (31.0-36.0); Mean Corpuscular Hemoglobin 30.1 pg (27.0-33.0); Mean Corpuscular Volume 84.9 fL (80.0-98.0); Mean Platelet Volume 9.3 fL (9.4-12.4); Monocytes Absolute Auto 0.5 X10*3/uL (0.1-1.2); Monocytes Percent Auto 6.6 % (2-11); Neutrophils Absolute Auto 5.1 x10*3/uL (2.0-8.3); Neutrophils Percent Auto 62.7 % (45-73); Platelet Count 217 X10*3/uL (160-400); Red Blood Count 5.51 X10*6/uL (4.60-5.80); Red Cell Distribution Width 12.1 % (11.0-16.0); White Blood Count 8.2 X10*3/uL (4.8-10.8)
[2023-09-10 09:20] LABS: Estimated Average Glucose 174 mg/dL; Hemoglobin A1c % 7.7 % (<6.0)
[2023-09-10 09:40] LABS: Rheumatoid Factor < 13.0 IU/mL (<15.0)
[2023-09-10 09:44] LABS: Alanine Aminotransferase 55 U/L (0-40); Albumin Level 3.8 g/dL (3.5-5.0); Alkaline Phosphatase 110 U/L (39-117); Anion Gap 11 (12-20); Aspartate Amino Transferase 36 U/L (5-37); Bilirubin Total 0.4 mg/dL (0.0-1.0); Blood Urea Nitrogen 12 mg/dL (9-16); C Reactive Protein 0.44 mg/dL (< or = 0.50); Calcium 8.6 mg/dL (8.4-10.2); Carbon Dioxide 26 mmol/L (22-29); Chloride 104 mmol/L (96-108); Cholesterol 165 mg/dL (<200); Estimated Glomerular Filt Rate > 60; Glucose Fasting 238 mg/dL (60-99); HDL Cholesterol 30 mg/dL (>40); LDL Cholesterol Calculated 103 mg/dL (<100); Potassium 4.1 mmol/L (3.3-5.1); Sodium 137 mmol/L (135-145); Total Protein 7.5 g/dL (6.5-8.0); Triglycerides 160 mg/dL (<150)
[2023-09-10 09:53] LABS: Troponin-I High Sensitivity < 2.7 ng/L (<3.5-35.0)
[2023-09-10 09:55] LABS: Erythrocyte Sedimentation Rate 5 MM/HR (0-15)
[2023-09-10 09:59] LABS: TSH reflex Free T4 1.99 uIU/mL (0.32-4.0); Vitamin D 25-OH Total 18.5 ng/mL (>30)
[2023-09-10 10:12] LABS: Appearance Urine Clear; Color Urine Yellow; Glucose Urine UA >=1000 mg/dL (Negative); Leukocyte Esterase Urine Negative (Negative); Nitrite Urine Negative (Negative); Specific Gravity - Urine 1.025 (1.005-1.025); UMIC TRIGGER UACC YES; Urine Blood Negative (Negative); Urine Ketones Negative (Negative); Urine Protein Negative (Neg-Trace)
[2023-09-10 10:12] LABS: Folate 11.8 ng/mL (> or = 4.0); Vitamin B12 337 pg/mL (200-900)
[2023-09-10 10:22] LABS: Bacteria Urine None Seen (None Seen); Hyaline Casts Urine 0-2 /LPF (0-2); RBC Urine 0-2 /HPF (0-2); Squamous Epithelial Cell Urine 0-2 /HPF (0-2); WBC Urine 0-5 /HPF (0-5)
[2023-09-10 10:36] LABS: Creatinine Urine 125.89 mg/dL; Microalbum/Creatinine Ratio Ur 7.9 ug/mg cr (<30)
[2023-09-12 22:32] LABS: Lyme Abs Screen <0.90 index
[2023-09-13 15:43] LABS: Cyclic Citrullinated Peptide <16 UNITS
[2023-09-16 18:04] LABS: CK-BB None Detected (None Detected); CK-MB 0 % (<5); CK-MM 91 % (95-100); Creatine Kinase,Total,Serum 134 U/L (44-196)
[2023-09-18 12:18] LABS: Anti Nuclear Antibody Pattern Nuclear, Homogeneous; Anti Nuclear Antibody Screen POSITIVE (NEGATIVE); Anti Nuclear Antibody Titer 1:40 titer
== END 2023-09-10 07:53 | disposition home or self-care (01) ==
LOC: HO.LAB 07:52
PROVIDERS: PCP Internal Medicine; Visit Provider Internal Medicine
DX: M25.50 Pain in unspecified joint (principal); R07.9 Chest pain, unspecified; E55.9 Vitamin D deficiency, unspecified; E11.9 Type 2 diabetes mellitus without complications; D64.9 Anemia, unspecified; E78.00 Pure hypercholesterolemia, unspecified; E53.8 Deficiency of other specified B group vitamins
CPT/HCPCS: 36415; 80053; 80061; 81001; 81003; 82043; 82306; 82552; 82570; 82607; 82746; 83036; 83735; 84443; 84484; 85025; 85652; 86038; 86039; 86140; 86200; 86431; 86617; 86618

== ENCOUNTER 2023-10-07 14:39 | Outpatient (REF) | payer OTHER, SELFPAY ==
--- NOTE | 2023-10-07 14:42 | EMG_ITS ---
Chief complaint: Bilateral hand pain and discoloration Reason for referral: Evaluate for neuropathy Referred by: Dr. Hill Procedure done: Bilateral upper extremities NCS/EMG Precautions and/or limitations: None The limb temperature was monitored continuously and remained between 32-36 degrees C during the performance of the NCS. Nerve Conduction Studies Anti Sensory Summary Table ?Stim Site NR Onset (ms) Norm Onset (ms) Peak (ms) Norm Peak (ms) O-P Amp (?V) Norm O-P Amp Site1 Site2 Delta-0 (ms) Dist (cm) Turner (m/s) Norm Turner (m/s) Left Median Anti Sensory (2nd Digit) Wrist ? 2.5 3.3 <3.6 33.0 >10 Wrist 2nd Digit 2.5 14.0 56 Right Median Anti Sensory (2nd Digit) Wrist ? 2.6 3.2 <3.6 32.1 >10 Wrist 2nd Digit 2.6 14.0 54 Right Radial Anti Sensory (Thumb) Forearm ? 1.4 1.8 <3.1 21.8 Forearm Thumb 1.4 0.0 Left Ulnar Anti Sensory (5th Digit) Wrist ? 2.3 2.9 <3.7 34.4 >15.0 Wrist 5th Digit 2.3 14.0 61 Right Ulnar Anti Sensory (5th Digit) Wrist ? 2.2 2.9 <3.7 20.2 >15.0 Wrist 5th Digit 2.2 14.0 64 Motor Summary Table ?Stim Site NR Onset (ms) Norm Onset (ms) O-P Amp (mV) Norm O-P Amp iAmp (mV) Amp (1st) (%) Site1 Site2 Delta-0 (ms) Dist (cm) Turner (m/s) Norm Turner (m/s) Left Median Motor (Abd Poll Brev) Wrist ? 3.7 <3.9 11.3 >4.5 13.9 100.0 Elbow Wrist 3.8 21.5 57 >45 Elbow ? 7.5 9.7 12.2 85.8 Right Median Motor (Abd Poll Brev) Wrist ? 3.4 <3.9 10.3 >4.5 12.1 100.0 Elbow Wrist 4.1 22.0 54 >45 Elbow ? 7.5 10.2 12.2 99.0 Left Ulnar Motor (Abd Dig Minimi) Wrist ? 2.8 <3.0 5.9 >5 7.3 100.0 B Elbow Wrist 3.4 20.0 59 >45 B Elbow ? 6.2 5.7 7.0 96.6 A Elbow B Elbow 0.8 10.0 125 >45 A Elbow ? 7.0 5.6 7.0 94.9 Right Ulnar Motor (Abd Dig Minimi) Wrist ? 2.8 <3.0 6.6 >5 8.3 100.0 B Elbow Wrist 3.5 20.0 57 >45 B Elbow ? 6.3 6.1 7.8 92.4 A Elbow B Elbow 1.1 10.0 91 >45 A Elbow ? 7.4 5.9 7.8 89.4 EMG ?Side Muscle Nerve Root Ins Act Fibs Psw Amp Dur Poly Recrt Int Pat Comment Right 1stDorInt Ulnar C8-T1 Nml Nml Nml Nml Nml 0 Nml Complete Right FlexCarRad Median C6-7 Nml Nml Nml Nml Nml 0 Nml Complete Right Biceps Musculocut C5-6 Nml Nml Nml Nml Nml 0 Nml Complete Right Triceps Radial C6-7-8 Nml Nml Nml Nml Nml 0 Nml Complete Right Deltoid Axillary C5-6 Nml Nml Nml Nml Nml 0 Nml Complete Left 1stDorInt Ulnar C8-T1 Nml Nml Nml Nml Nml 0 Nml Complete Left FlexCarRad Median C6-7 Nml Nml Nml Nml Nml 0 Nml Complete Left Biceps Musculocut C5-6 Nml Nml Nml Nml Nml 0 Nml Complete Left Triceps Radial C6-7-8 Nml Nml Nml Nml Nml 0 Nml Complete Left Deltoid Axillary C5-6 Nml Nml Nml Nml Nml 0 Nml Complete FINDINGS: All motor and sensory nerves tested showed normal latencies, amplitudes and conduction velocities. Concentric needle EMG was performed in selected muscles of the upper extremity. Study did not reveal signs of electric abnormalities as shown in the table below. IMPRESSION: 1. This is a normal study. 2. There is no electrodiagnostic evidence for median neuropathy, ulnar neuropathy, brachial plexopathy, or cervical radiculopathy. Thank you for your kind referral. Miguelina Pacheco MD, [facility] Board Certified, [place] Board [employer] and [employer] (ABPMR) Board Certified, [place] Board of Electrodiagnostic Medicine (ABEM) CODIN 44438 x 2 MTDD
== END 2023-10-07 14:40 | disposition home or self-care (01) ==
LOC: HO.NEURO 14:39
PROVIDERS: PCP Internal Medicine; Visit Provider Internal Medicine
DX: R20.2 Paresthesia of skin (principal)
CPT/HCPCS: 95886; 95911

== ENCOUNTER → 2023-10-07 14:42 | Outpatient (BNV) | payer OTHER, SELFPAY | PROVIDERS: PCP Internal Medicine; Visit Provider Physical Medicine & Rehabilitation | DX: M79.641 Pain in right hand (principal); M79.642 Pain in left hand; L81.9 Disorder of pigmentation, unspecified | CPT/HCPCS: 95886; 95911 ==

== ENCOUNTER 2023-11-04 10:51 | Outpatient (AMB) | payer OTHER, SELFPAY ==
[2023-11-04 10:58] VITALS: BP 138/88; PULSE 87; O2SAT 97; BMI 33.9
--- NOTE | 2023-11-04 10:58 | MHC.PC.OV ---
Vital Signs 11/04/23 10:58 Height 5 ft 9 in Weight 229 lb 6 oz BMI 33.9 BP 138/88 Blood Pressure Location Lt brachial Position Sitting Pulse 87 Pulse Source Pulse Oximeter Pulse Oximetry (%) 97 Oxygen Delivery Method Room Air Intake Visit Reasons: Annual Exam Intake Note: Patient is here today for a physical. Foot Caster Required: No Accompanied by: Self / Same As Patient Allergies No Known Allergies Allergy (Verified 11/04/23 11:54) Medication List - Last Reconciled 11/04/23 by Huber Hill MD acetaminophen 1,000 mg (2 x 500 mg) PO Q6H PRN alcohol swabs 1 pad topical QIDACHS blood sugar diagnostic (FreeStyle Lite Strips) Test four times a day or as directed. blood-glucose meter (FreeStyle Lite Meter kit) As Directed cholecalciferol (vitamin D3) 50 mcg PO DAILY 90 days gabapentin 100 mg PO BID 30 days ibuprofen 800 mg PO Q8H PRN lancets (FreeStyle Lancets) Test four times a day or as directed. Lantus Solostar U-100 Insulin (insulin glargine) 15 units (0.15 mL) subcut QAM 30 days NS lisinopril 10 mg PO DAILY 90 days magnesium oxide (MagOx) 400 mg PO DAILY 90 days Ozempic (semaglutide) 0.25 mg (0.368 mL) subcut QWEEK NS pen needle, diabetic Use four times a day or as directed. Tobacco use date assessed: 09/06/23 Dental Screening Dental Screen Date: 09/06/23 HPI Annual Exam HPI Details Patient comes in today for his annual physical examination States that he feels okay He denies any headaches or dizziness Denies any chest pains, no SOB No nausea/vomiting, no abdominal pain No change in bowel habits noted He denies any acute urinary symptoms Needs a couple of his Rx refilled; states that he has not been able to get started on Lantus as he was advised by his pharmacy that his insurance would not cover the Rx He continues to experience recurrent/frequent tingling sensation and numbness in both feet and hands States that this is present all throughout the day but the ones in his feet feel more pronounced at night and with prolonged standing at work He would like to know how his recent labs done back in August 2023 came out COUNTS INCLUDE 234 BEDS AT [facility] Medical History (Updated 11/04/23 @ 12:11 by Huber Hill MD) Diabetes mellitus Mixed hyperlipidemia Elevated LFTs Obesity (BMI 30-39.9) Hypertension Vitamin D deficiency Surgical History No pertinent past surgical history Family History Father Hypertension Mother No problems noted. Brother No problems noted. Brother No problems noted. Brother No problems noted. Brother No problems noted. Social History Housing: House Alcohol intake: current Alcohol intake frequency: does not drink Patient Tobacco Use Status: Never used Tobacco e-Cigarette/Vaping Use: Never Used Second Hand Smoke Exposure: No service: No Current occupational status: employed Cognitive needs: No Hearing needs: No Vision needs: Yes Questionnaire PHQ-9 Over the last 2 weeks, how often have you been bothered by any of the following problems? Depression Screening Interpretation: Negative Depression Screening Done: Yes Source: Developed by Drs. Ayad Felipe, Yaritza Kaufman, Serjio Martinez and colleagues, with an educational hailey from [employer] (Inspect Manager). Thrive Questionnaire Date Thrive assessed: 09/06/23 Currently or been in a relationship where the following occur: no concerns reported THRIVE Score: 0 CATA-7 AMB Questionnaire CATA-7 Date CATA - 7 assessed: 09/06/23 Source: Developed by Drs. Ayad Feliep, Yaritza Kaufman, Serjio Martinez and colleagues, with an educational hailey from [employer] (Inspect Manager). Review of Systems Const Denies chills, Denies fatigue, Denies fever(s), Denies headache(s) and Denies malaise Eyes Denies blurry vision, Denies change in vision, Denies irritation and Denies itchy eyes ENT Denies dysphagia, Denies dizziness, Denies otalgia, Denies headache(s), Denies nasal congestion, Denies neck pain, Denies odynophagia and Denies sore throat Card Denies chest pain, Denies rapid heart rate, Denies irregular heart rhythm, Denies palpitations and Denies dyspnea Resp Denies chest congestion, Denies cough, Denies dyspnea and Denies wheezing GI Denies abdominal pain, Denies bloating, Denies change in bowel habits, Denies constipation, Denies dysphagia, Denies heartburn, Denies diarrhea, Denies nausea, Denies odynophagia and Denies vomiting Denies hematuria, Denies difficulty urinating, Denies dysuria, Denies testicular mass, Denies testicular pain, Denies urinary frequency, Denies urinary incontinence and Denies urinary urgency Musc Denies back pain, Reports arthralgias (on and off in both hands), Denies joint swelling, Denies muscle weakness and Denies neck pain Skin/Breast Denies change in pigmentation, Denies lesions, Denies rash and Denies unusual bruising Neuro Denies dizziness, Denies headache(s) and Reports paresthesias (recurrent in both hands and feet - see HPI) Endo Denies fatigue and Denies palpitations Aller/Immun Denies itchy eyes and Denies wheezing Physical exam (Primary Care) Vital Signs: Last Vital Signs Pulse 87 11/04/23 10:58 BP 138/88 11/04/23 10:58 Pulse Ox 97 11/04/23 10:58 Oxygen Delivery Method Room Air 11/04/23 10:58 BMI result Body Mass Index 33.9 Tobacco/Smoking Status: Tobacco use Status Tobacco use date assessed 09/06/23 11/04/23 11:03 Patient Tobacco Use Status Never used Tobacco 11/04/23 11:03 e-Cigarette/Vaping Use Never Used 11/04/23 11:03 Depression Screening Interpretation: Negative Thrive Assessment: Date of Thrive Assessment Date Thrive assessed 09/06/23 11/04/23 11:03 Currently or been in a relationship where the following occur: no concerns reported Const General: no acute distress, alert and awake Orientation/consciousness: patient oriented x3 HENMT Head: Yes normocephalic and Yes atraumatic Ears: external ears normal, TM's normal bilaterally and EAC's normal General nose exam: No nasal discharge present Face and sinus: Yes normal facial exam and Yes sinuses nontender Teeth and gingiva: dentition normal Throat: Yes posterior oropharynx normal and Yes tonsils normal (no TP congestion) Eyes Eyelids: Yes eyelids normal Conjunctivae: conjunctivae normal Pupils: Equal, round and reactive pupils present EOM: EOMs intact bilaterally Neck Neck: Yes no lymphadenopathy and Yes supple Thyroid: Thyroid normal Resp Auscultation: clear to auscultation bilaterally, no rales and no wheezes Cardio Rate: regular rate Rhythm: regular rhythm Heart sounds: no murmurs GI Palpation (GI): Soft to palpation, nontender and No hepatosplenomegaly present Auscultation: normal bowel sounds General: Yes no CVA tenderness Back/Spine/Pelvis Back: no CVA tenderness Thoracic/Lumbar Spine: thoracic and lumbar spine normal to inspection Skin Lesions: no lesions Rashes: no rashes Neuro General: patient oriented x3, moves all extremities, no focal motor deficits and CN's II-XI intact bilaterally Cranial nerves: Yes CN's II-XII intact bilaterally and Yes Equal, round and reactive pupils present Cognition (Neuro): normal cognition Gait exam (Neuro): Normal gait present Extrem General: Yes no clubbing, cyanosis or edema Results Reviewed Results Reviewed: Laboratory Tests 08/28/22 09/10/23 09/10/23 09:00 08:15 08:18 WBC 8.2 Hgb 16.6 Hct 46.8 Plt Count 217 ESR 5 Sodium 137 Potassium 4.1 Creatinine 0.86 Estimated GFR > 60 Fasting Glucose 238 H Hemoglobin A1c % 7.7 H Calcium 8.6 Magnesium 2.0 GGT 79 H AST 36 ALT 55 H Troponin I High Sens < 2.7 C-Reactive Protein 0.44 Triglycerides 160 H Cholesterol 165 LDL Cholesterol, Calc 103 H HDL Cholesterol 30 L Vitamin B12 337 25-OH Vitamin D Total 18.5 L TSH 1.99 Urine pH 7.0 Ur Specific [place] 1.025 Urine Protein Negative Urine Glucose (UA) >=1000 H Urine Blood Negative Urine Nitrite Negative Ur Leukocyte Esterase Negative Microalb/Creat Ratio 7.9 Rheumatoid Factor < 13.0 JOSÉ Screen POSITIVE A JOSÉ Titer 1:40 H JOSÉ Pattern Nuclear, Homogeneous A Lyme Screen IgG & IgM <0.90 Assessment and Plan Assessment & Plan (1) Annual physical exam: Code(s): Z00.00 - Encounter for general adult medical examination without abnormal findings Plan: Results of his labs done back in August 2023 reviewed and discussed with patient He has never had a screening colonoscopy done in the past (2) Diabetes mellitus: Comment: DM diagnosed in 2022 Code(s): E11.9 - Type 2 diabetes mellitus without complications Qualifiers: Diabetes mellitus type: type 2 Diabetes mellitus longterm insulin use: with technician terminal and repeater use Diabetes mellitus complication status: with hyperglycemia Qualified Code(s): E11.65 - Type 2 diabetes mellitus with hyperglycemia; Z79.4 - terminal carman (current) use of insulin Plan: His HgbA1c was at 7.7% on his labs done a few weeks ago in mid-August 2023 (was at 6.5% when last checked over a year ago in August 2022) - goal is at least <7.0% Reinforced diabetic diet States that he has been out of his Lantus for months now as he was reportedly advised by his pharmacy that his insurance is not covering his Rx and they have not heard back from us regarding any alternative Rx Patient advised that I do not see anywhere in his chart that the pharmacy reached out to us about this I will send in his Lantus Rx 15 units Q HS again and he is advised that he needs to let us know (personally if he has to) if he is still not able to get his Rx refilled/covered by his insurance Continue Novolog TID with meals per sliding scale as before Patient is also requesting for Ozempic Rx if appropriate as he would like to try to lose some weight - states that he has tried watching his diet but was not successful at all Will start him on a trial of Ozempic 0.25 mg SQ once a week but advised that it looks like his insurance is requesting for a PA to be done so we may not be able to get this approved (3) Mixed hyperlipidemia: Code(s): E78.2 - Mixed hyperlipidemia Plan: He is advised that his serum triglyderide level has increased from last year on his recent labs and is now back up at 160 mg/dl His LDL cholesterol is still slightly over at 103 mg/dl - should ideally at least be under 100 mg/dl as he is a diabetic Reinforced low cholesterol diet Will continue to hold off on Rx for now as his LFTs are slightly elevated but advised that statins are indicated in diabetics irregardless of their cholesterol numbers and we may still need to start him on Rx at some point Will recheck his labs and fasting lipids in 3 months for follow up (4) Paresthesia of both feet: Code(s): R20.2 - Paresthesia of skin Plan: EMG & NCV done at [facility] last month (September 2023) came out NORMAL with no evidence of neuropathy CRP, ESR as well as his vitamin B12 level all came back normal on his recent labs Continue Gabapentin 100 mg BID (5) Bilateral hand pain: Code(s): M79.641 - Pain in right hand; M79.642 - Pain in left hand Plan: He was previously sent for x-rays but he never got them done Arthralgia work ups done last year were negative but his repeat JOSÉ done in August 2023 came back positive and patient is concerned about this although he is advised that all of his other tests came back okay and he currently has no signs /symptoms of inflammatory joint disease Will refer him to rheumatology for further evaluation and recommendations (6) Elevated LFTs: Code(s): R79.89 - Other specified abnormal findings of blood chemistry Plan: Advised that his LFTs are still slightly elevated on his recent labs Are most likely related to his weight (steatohepatitis) and should improve/resolve with weight loss Will continue to monitor his LFTs regularly (7) Vitamin D deficiency: Code(s): E55.9 - Vitamin D deficiency, unspecified Plan: Continue Vitamin D3 2000 units QD - Rx refilled (8) Obesity (BMI 30-39.9): Code(s): E66.9 - Obesity, unspecified Plan: Reinforced diet/exercise as tolerated/lose weight Plan Follow up in 3 months Orders: Orders Hemoglobin A1c 3 Months E11.9 - Type 2 diabetes mellitus without complications Microalbumin, Random (w Creat) 3 Months E11.9 - Type 2 diabetes mellitus without complications Complete Blood Count Auto Diff 3 Months D64.9 - Anemia, unspecified Comprehensive [place]. Panel Fast 3 Months E78.00 - Pure hypercholesterolemia, unspecified Lipid Panel 3 Months E78.00 - Pure hypercholesterolemia, unspecified TSH reflex Free T4 3 Months E78.00 - Pure hypercholesterolemia, unspecified UA CC w/rflx Micro + Cult 3 Months R30.0 - Dysuria Vitamin D 25-OH Total 3 Months E55.9 - Vitamin D deficiency, unspecified Referrals Rheumatology Referral R76.8 - Other specified abnormal immunological findings in serum Medications: New Ozempic (semaglutide) 0.25 mg (0.368 mL) subcut QWEEK 3 mL 3RF NS Refilled lancets (FreeStyle Lancets) Test four times a day or as directed. 100 ea 3RF E11.9 - Type 2 diabetes mellitus without complications lisinopril 10 mg PO DAILY 90 days 90 tabs 3RF Lantus Solostar U-100 Insulin (insulin glargine) 15 units (0.15 mL) subcut QAM 30 days 4.5 mL 3RF NS cholecalciferol (vitamin D3) 50 mcg PO DAILY 90 days 90 caps 3RF E55.9 - Vitamin D deficiency, unspecified Coding Level of Care Code Est Pt Prev Care 40-64y([id number]) Diagnoses Annual physical exam Z00.00 Type 2 diabetes mellitus with hyperglycemia, with long-term current use of insulin E11.65; Z79.4 Diabetes mellitus type: type 2 Diabetes mellitus longterm insulin use: with longterm use Diabetes mellitus complication status: with hyperglycemia Mixed hyperlipidemia E78.2 Paresthesia of both feet R20.2 Bilateral hand pain M79.641; M79.642 Elevated LFTs R79.89 Vitamin D deficiency E55.9 Obesity (BMI 30-39.9) E66.9
== END 2023-11-04 11:49 | disposition home or self-care (01) ==
PROVIDERS: PCP Internal Medicine; Visit Provider Internal Medicine
DX: Z00.00 Encounter for general adult medical examination without abnormal findings (principal); E11.65 Type 2 diabetes mellitus with hyperglycemia; Z79.4 Long term (current) use of insulin; E78.2 Mixed hyperlipidemia; R20.2 Paresthesia of skin; M79.641 Pain in right hand; M79.642 Pain in left hand; R79.89 Other specified abnormal findings of blood chemistry; E55.9 Vitamin D deficiency, unspecified
CPT/HCPCS: 99396

== ENCOUNTER 2024-04-25 16:21 | Outpatient (AMB) | payer OTHER, SELFPAY ==
[2024-04-25 17:01] VITALS: BP 128/72; PULSE 91; O2SAT 96; BMI 33.7
--- NOTE | 2024-04-25 17:01 | A.OFFPC_ITS ---
Vital Signs 04/25/24 17:01 Height 5 ft 9 in Weight 228 lb 2 oz BMI 33.7 BP 128/72 Blood Pressure Location Lt brachial Position Sitting Pulse 91 Pulse Source Pulse Oximeter Pulse Oximetry (%) 96 Oxygen Delivery Method Room Air Intake Visit Reasons: follow up Wire Twister Required: No Accompanied by: Self / Same As Patient Allergies semaglutide [From Ozempic] Adverse Reaction (Intermediate, Verified 04/25/24 17:31) abdominal pain, vomiting, dizziness Medication List - Last Reconciled 04/25/24 by Huber Hill MD acetaminophen 1,000 mg (2 x 500 mg) PO Q6H PRN alcohol swabs 1 pad topical QIDACHS blood sugar diagnostic (FreeStyle Lite Strips) Test four times a day or as directed. blood-glucose meter (FreeStyle Lite Meter kit) As Directed cholecalciferol (vitamin D3) 50 mcg PO DAILY 90 days gabapentin 100 mg PO BID 30 days ibuprofen 800 mg PO Q8H PRN lancets (FreeStyle Lancets) Test four times a day or as directed. Lantus Solostar U-100 Insulin (insulin glargine) 15 units (0.15 mL) subcut QAM 30 days NS lisinopril 10 mg PO DAILY 90 days magnesium oxide (MagOx) 400 mg PO DAILY 90 days pen needle, diabetic Use four times a day or as directed. Tobacco use date assessed: 04/25/24 Dental Screening Dental Screen Date: 04/25/24 Did you have a dental visit in the last 12 months?: No Did you have a dental problem in the last 6 months where you did not have access to dental care?: No Was dental information given to patient?: No HPI follow up HPI Details Patient comes in today for his follow up visit States that he has been experiencing on and off chest pressure/discomfort at times for the past few weeks He has not noticed any association of these symptoms with activity or exertion and these also occur at times when he is lying down in bed States that he is still having trouble getting his long-acting insulin as his insurance do not seem to want to cover Lantus - recalls that he was advised that Semglee is the one the they will cover Adds that he had trouble tolerating his Ozempic - he was experiencing recurrent abdominal pain and bloating every time he took his weekly dose States that he tried putting up with the symptoms initially as he was hoping that they would subside over time but he eventually stopped after 3 doses as his symptoms did not improve and they promptly cleared up after cessation of the Ozempic States that he feels okay otherwise He denies any headaches or dizziness Denies any increased SOB No nausea/vomiting, no abdominal pain No change in bowel habits noted He was not able to get his previously ordered follow up labs done yet [facility] Medical History (Updated 04/29/24 @ 16:16 by Hubre Hill MD) Essential hypertension Diabetes mellitus Mixed hyperlipidemia Elevated LFTs Obesity (BMI 30-39.9) Hypertension Vitamin D deficiency Surgical History No pertinent past surgical history Family History Father Hypertension Mother No problems noted. Brother No problems noted. Brother No problems noted. Brother No problems noted. Brother No problems noted. Social History Housing: House Alcohol intake: current Alcohol intake frequency: does not drink Patient Tobacco Use Status: Never used Tobacco e-Cigarette/Vaping Use: Never Used Second Hand Smoke Exposure: No service: No Current occupational status: employed Cognitive needs: No Hearing needs: No Vision needs: Yes Questionnaire PHQ-9 Over the last 2 weeks, how often have you been bothered by any of the following problems? 1. Little interest or pleasure in doing things: not at all 2. Feeling down, depressed, or hopeless: not at all 3. Trouble falling or staying asleep, or sleeping too much: not at all 4. Feeling tired or having little energy: not at all 5. Poor appetite or overeating: not at all 6. Feeling bad about yourself - or that you are a failure or have let yourself or your family down: not at all 7. Trouble concentrating on things, such as reading the newspaper or watching television: not at all 8. Moving or speaking so slowly that other people could have noticed. Or the opposite - being so fidgety or restless that you have been moving around a lot more than usual: not at all 9. Thoughts that you would be better off or of hurting yourself in some way: not at all Total score: 0 Depression Screening Interpretation: Negative Depression Screening Done: Yes 19517 - PHQ-9 Billing: Yes Source: Developed by Drs. Ayad Felipe, Yaritza Kaufman, Serjio Martinez and colleagues, with an educational hailey from Natanael Ulien. Thrive Questionnaire Date Thrive assessed: 04/25/24 I am a: Patient What is your living situation today?: I have a steady place to live Within the past 12 months, did the food you bought not last and you didn't have the money to get more?: Never true Within the past 12 months, did you worry whether your food would run out before you got money to buy more?: Never true Do you have trouble paying for medicines?: No Do you have trouble getting transportation to medical appointments?: No Do you have trouble paying your heating and electricity bill?: No Do you have trouble taking care of your child, family member or friend?: No Do you have trouble with day-to-day activities such as bathing, preparing meals, shopping, managing finances, etc.?: No Are you currently unemployed and looking for a job?: No Are you interested in more education?: No Please select the resources that you would like help with: None Currently or been in a relationship where the following occur: No concerns repor ham THRIVE Score: 0 AUDIT C Alcohol Use Questionnaire (AUDIT-C) 1. How often do you have a drink containing alcohol?: Never 3. How often do you have six or more drinks on one occasion?: Never Total Score: 0 Score Reviewed/Action Taken: Yes CATA-7 AMB Questionnaire CATA-7 Date CATA - 7 assessed: 04/25/24 Feeling nervous, anxious, or on edge: 0 = Not at all Not being able to stop or control worryin = Not at all Worrying too much about different things: 0 = Not at all Trouble relaxin = Not at all Being so restless that it is hard to sit still: 0 = Not at all Becoming easily annoyed or irritable: 0 = Not at all Feeling afraid as if something awful might happen: 0 = Not at all Total CATA-7 score (0-4 normal; 5-9 mild; 10-14 moderate; 15-21 severe): 0 Source: Developed by Drs. Ayad Felipe, Yaritza Kaufman, Serjio Martinez and colleagues, with an educational hailey from Natanael Ulien. Review of Systems Const Denies chills, Denies fatigue, Denies fever(s) and Denies headache(s) ENT Denies dysphagia, Denies dizziness, Denies otalgia, Denies headache(s), Denies neck pain, Denies odynophagia and Denies sore throat Card Denies chest pain (but reports on and off chest pressure/discomfort - see HPI), Denies rapid heart rate, Denies irregular heart rhythm, Denies palpitations and Denies dyspnea Resp Denies chest congestion, Denies cough and Denies dyspnea GI Denies abdominal pain, Denies change in bowel habits, Denies constipation, Denies dysphagia, Denies heartburn, Denies diarrhea, Denies nausea, Denies odynophagia and Denies vomiting Denies difficulty urinating, Denies dysuria, Denies urinary frequency and Denies urinary incontinence Musc Denies back pain, Reports arthralgias (on and off in both hands) and Denies neck pain Skin/Breast Denies rash Neuro Denies dizziness, Denies headache(s) and Reports paresthesias (recurrent in both hands and feet) Endo Denies fatigue and Denies palpitations Physical exam (Primary Care) Vital Signs: Last Vital Signs Pulse 91 04/25/24 17:01 BP 128/72 04/25/24 17:01 Pulse Ox 96 04/25/24 17:01 Oxygen Delivery Method Room Air 04/25/24 17:01 BMI result Body Mass Index 33.7 Tobacco/Smoking Status: Tobacco use Status Tobacco use date assessed 04/25/24 04/25/24 17:06 Patient Tobacco Use Status Never used Tobacco 04/25/24 17:06 e-Cigarette/Vaping Use Never Used 04/25/24 17:06 PHQ-9: PHQ-9 Score PHQ-9: Total score 0 04/25/24 17:31 Depression Screening Interpretation: Negative Thrive Assessment: Date of Thrive Assessment Date Thrive assessed 04/25/24 04/25/24 17:06 Currently or been in a relationship where the following occur: No concerns reported Const General: no acute distress and alert HENMT Ears: TM's normal bilaterally and EAC's normal Throat: Yes posterior oropharynx normal and Yes tonsils normal (no TP congestion) Neck Neck: Yes no lymphadenopathy and Yes supple Thyroid: Thyroid normal Resp Auscultation: clear to auscultation bilaterally, no rales and no wheezes Cardio Rate: regular rate Rhythm: regular rhythm Heart sounds: no murmurs GI Palpation (GI): Soft to palpation and nontender Auscultation: normal bowel sounds General: Yes no CVA tenderness Back/Spine/Pelvis Back: no CVA tenderness Thoracic/Lumbar Spine: thoracic and lumbar spine normal to inspection Skin Rashes: no rashes Extrem General: Yes no clubbing, cyanosis or edema Office Procedures Flu Questionnaire Does the patient have a severe egg allergy?: No Results AMB Hemoglobin A1c AMB Hemoglobin A1c 7.1 % Last Edit by CHANELLE Del Rio on 04/25/24 17 :28 Immunizations Fluarix Triv [id number] (PF) 45 mcg (15 mcg x 3)/0.5 mL IM syringe Performing Provider: Huber Hill MD [facility] Documented (not given) by: CHANELLE Del Rio on 04/25/24 17:09 Reason Not Given: Patient Refused Results Reviewed Results Reviewed: Laboratory Last Values Hgb A1c (Clinic) 7.1 % (4.0-6.0) H 04/25/24 17:22 Coding Level of Care Code Est Pt Level 4 (65040) Diagnoses Chest discomfort R07.89 Type 2 diabetes mellitus with hyperglycemia, with long-term current use of insulin E11.65; Z79.4 Diabetes mellitus type: type 2 Diabetes mellitus long-term insulin use: with long-term use Diabetes mellitus complication status: with hyperglycemia Mixed hyperlipidemia E78.2 Essential hypertension I10 Paresthesia of both feet R20.2 Bilateral hand pain M79.641; M79.642 Elevated LFTs R79.89 Vitamin D deficiency E55.9 Obesity (BMI 30-39.9) E66.9 Assessment & Plan Assessment & Plan (1) Chest discomfort: Code(s): R07.89 - Other chest pain Category: Medical Plan: Have advised patient that we should evaluate his recurrent chest discomfort/pr essure further as he is a diabetic and his cardiovascular risks are significantly higher than an average person's Will send him for cardiac stress testing SHADI (2) Diabetes mellitus: Comment: DM diagnosed in 2022 Code(s): E11.9 - Type 2 diabetes mellitus without complications Category: Medical Qualifiers: Diabetes mellitus type: type 2 Diabetes mellitus long-term insulin use: with long-term use Diabetes mellitus complication status: with hyperglycemia Qualified Code(s): E11.65 - Type 2 diabetes mellitus with hyperglycemia; 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 Plan: His in-office HgbA1c done today is at 7.1% (his HgbA1c was at 7.7% back in mid- August 2023 and was at 6.5% a year ago in August 2022) - goal is at least <7.0% Reinforced diabetic diet States that he is still out of his Lantus and that his pharmacy is still advising him that his health insurance company is not covering his Rx but will probably cover Semglee Will try sending in Rx for Semglee to take 15 units Q HS Continue Novolog TID with meals per sliding scale as before Patient also requested for a trial of Ozempic Rx at his last visit but he could not tolerate the Rx due to side effects and stopped it after 3 doses Will see how his diabetes does over the next few months when he is able to get back on his basal insulin as well (3) Mixed hyperlipidemia: Code(s): E78.2 - Mixed hyperlipidemia Category: Medical Plan: Patient was not able to get his previously ordered (follow up) labs done yet - states that he will try to get them done SHADI He is reminded that his serum triglyderide level was back up to 160 mg/dl and his LDL cholesterol was at 103 mg/dl back in August 2023 - his LDL cholesterol should ideally at least be under 100 mg/dl as he is a diabetic Reinforced low cholesterol diet Will continue to hold off on Rx for now as his LFTs were slightly elevated on his previous labs but advised that statins are indicated in diabetics irregardless of their cholesterol numbers and we may still need to start him on the Rx at some point Will recheck his labs and fasting lipids again in 3 months for follow up (4) Essential hypertension: Code(s): I10 - Essential (primary) hypertension Category: Medical Plan: Reinforced low sodium diet - goal is systolic BP of at least 120 mm or less Continue Lisinopril 10 mg QD (5) Paresthesia of both feet: Code(s): R20.2 - Paresthesia of skin Category: Medical Plan: EMG & NCV done at [facility] [place] came out NORMAL with no evidence of neuropathy CRP, ESR as well as his vitamin B12 level all came back normal when they were previously checked Continue Gabapentin 100 mg BID for now (6) Bilateral hand pain: Code(s): M79.641 - Pain in right hand; M79.642 - Pain in left hand Category: Medical Plan: He was previously sent for x-rays of both hands but he never got them done Arthralgia work ups done last year were negative but his repeat JOSÉ done in August 2023 came back positive He was advised that all of his other tests came back okay and he's had no signs /symptoms of inflammatory joint disease Per patient's request, we referred him to rheumatology for further evaluation and recommendations but the practitioner who was scheduled to see him recently left the practice so he currently still has no appointment with rheumatology scheduled yet (7) Elevated LFTs: Code(s): R79.89 - Other specified abnormal findings of blood chemistry Category: Medical Plan: Patient is advised that his LFTs were still slightly elevated on his labs when last checked in August 2023 These are most likely related to his weight (steatohepatitis) and should improve/resolve with weight loss Will continue to monitor his LFTs regularly (8) Vitamin D deficiency: Code(s): E55.9 - Vitamin D deficiency, unspecified Category: Medical Plan: Continue Vitamin D3 2000 units QD (9) Obesity (BMI 30-39.9): Code(s): E66.9 - Obesity, unspecified Category: Medical Plan: Reinforced diet/exercise as tolerated/lose weight Plan Follow up in 3 months Orders: Orders AMB Hemoglobin A1c 04/25/24 Z13.9 - Encounter for screening, unspecified Complete Blood Count Auto Diff 3 Months D64.9 - Anemia, unspecified Comprehensive [place]. 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
== END 2024-04-25 17:39 | disposition home or self-care (01) ==
PROVIDERS: PCP Internal Medicine; Visit Provider Internal Medicine
DX: R07.89 Other chest pain (principal); E11.65 Type 2 diabetes mellitus with hyperglycemia; Z79.4 Long term (current) use of insulin; E78.2 Mixed hyperlipidemia; I10 Essential (primary) hypertension; R20.2 Paresthesia of skin; M79.641 Pain in right hand; M79.642 Pain in left hand; R79.89 Other specified abnormal findings of blood chemistry; E55.9 Vitamin D deficiency, unspecified; E66.9 Obesity, unspecified

== ENCOUNTER → 2024-04-25 16:21 | Outpatient (BNVA) | payer OTHER, SELFPAY | PROVIDERS: PCP Internal Medicine; Visit Provider Internal Medicine | DX: R07.89 Other chest pain (principal); E11.65 Type 2 diabetes mellitus with hyperglycemia; E78.2 Mixed hyperlipidemia; I10 Essential (primary) hypertension; R20.2 Paresthesia of skin; M79.641 Pain in right hand; M79.642 Pain in left hand; R79.89 Other specified abnormal findings of blood chemistry; E55.9 Vitamin D deficiency, unspecified; E66.9 Obesity, unspecified; Z68.33 Body mass index [BMI] 33.0-33.9, adult; Z79.4 Long term (current) use of insulin; Z79.899 Other long term (current) drug therapy; Z28.21 Immunization not carried out because of patient refusal | CPT/HCPCS: 83036; 90471; 96127 ==

== ENCOUNTER → 2024-05-24 08:17 | Outpatient (REF) | payer OTHER, SELFPAY ==
--- NOTE | 2024-05-24 08:19 | CA_ITS ---
Acquisition Time: 2024-05-24 08:27:58 Total Exercise Time: 00:05:48 Test Indications: CP Medications: SEE H Protocol: AMITA Max HR: 160 BPM 90% of Pred: 176 BPM Max BP: 198/060 mmHG Max Work Load: 7.0 METS Exercise stress test with exercise 5 min 48 sec of Amita protocol, achiving 90% MPHR, with moderate shortness of breath, no chest discomfort, without arrythmia, with elevated BP at baseline 140/90 then further elevation with exercise to max of 198/60 ( he took am Lisinopril), without EKG changes meeting criteria for ischemia. In recovery BP returned to 148/80 and sob resolved. Test reviewed with Dr Tena. Referred By: Huber Hill Overread By: KRISTEN YUSUF
== END ==
LOC: HO.CARD 08:17
PROVIDERS: PCP Internal Medicine; Visit Provider Internal Medicine
DX: R07.89 Other chest pain (principal); E78.2 Mixed hyperlipidemia; E11.65 Type 2 diabetes mellitus with hyperglycemia; Z79.4 Long term (current) use of insulin
CPT/HCPCS: 93017

== ENCOUNTER → 2024-05-24 08:19 | Outpatient (BNV) | payer OTHER, SELFPAY | PROVIDERS: PCP Internal Medicine; Visit Provider Nurse Practitioner Family | DX: R06.02 Shortness of breath (principal); R03.0 Elevated blood-pressure reading, without diagnosis of hypertension | CPT/HCPCS: 93016; 93018 ==

== ENCOUNTER 2024-08-21 16:44 | Outpatient (AMB) | payer OTHER, SELFPAY ==
[2024-08-21 16:53] VITALS: BP 132/98; PULSE 89; O2SAT 97; BMI 33.7
--- NOTE | 2024-08-21 16:53 | MHC.PC.OV ---
Vital Signs 08/21/24 16:53 Height 5 ft 9 in Weight 228 lb BMI 33.7 BP 132/98 H Blood Pressure Location Lt brachial Position Sitting Pulse 89 Pulse Source Pulse Oximeter Pulse Oximetry (%) 97 Oxygen Delivery Method Room Air Intake Visit Reasons: lacey pedroza Creative Services Intern Required: No Accompanied by: Self / Same As Patient Allergies semaglutide [From Ozempic] Adverse Reaction (Intermediate, Verified 08/21/24 17:23) abdominal pain, vomiting, dizziness Medication List - Last Reconciled 08/21/24 by Huber Hill MD acetaminophen 1,000 mg (2 x 500 mg) PO Q6H PRN alcohol swabs 1 pad topical QIDACHS blood sugar diagnostic (FreeStyle Lite Strips) Test four times a day or as directed. blood-glucose meter (FreeStyle Lite Meter kit) As Directed cholecalciferol (vitamin D3) 50 mcg PO DAILY 90 days gabapentin 100 mg PO BID 30 days ibuprofen 800 mg PO Q8H PRN insulin glargine-yfgn (Semglee (insulin glargine-yfgn) Pen) 14 units subcut QPM lancets (FreeStyle Lancets) Test four times a day or as directed. lisinopril 10 mg PO DAILY 90 days magnesium oxide (MagOx) 400 mg PO DAILY 90 days pen needle, diabetic Use four times a day or as directed. Tobacco use date assessed: 08/21/24 Dental Screening Dental Screen Date: 08/21/24 Did you have a dental visit in the last 12 months?: No Did you have a dental problem in the last 6 months where you did not have access to dental care?: No Was dental information given to patient?: Patient has dentist ANDREINA pedroza HPI Details Patient comes in today for his follow-up visit States that he has been experiencing increased anxiety for a while now States that he used to think that he can handle his anxiety but now realizes that it is not as easy as he thought it was Relates (+) problems sleeping at night often and he now thinks that this has a lot to do with his anxiety He denies any headaches or dizziness Denies any chest pains, no shortness of breath No nausea/vomiting, no abdominal pain No change in bowel habits noted He was not able to get his follow-up labs done prior to his appointment today - states that he will try to get these done SHADI PFSH Medical History (Updated 08/22/24 @ 05:40 by Huber Hill MD) Insomnia Anxiety Essential hypertension Diabetes mellitus Mixed hyperlipidemia Elevated LFTs Obesity (BMI 30-39.9) Hypertension Vitamin D deficiency Surgical History No pertinent past surgical history Family History Father Hypertension Mother No problems noted. Brother No problems noted. Brother No problems noted. Brother No problems noted. Brother No problems noted. Social History Housing: House Alcohol intake: current Alcohol intake frequency: does not drink Patient Tobacco Use Status: Never used Tobacco e-Cigarette/Vaping Use: Never Used Second Hand Smoke Exposure: No service: No Current occupational status: employed Cognitive needs: No Hearing needs: No Vision needs: Yes Questionnaire PHQ-9 Over the last 2 weeks, how often have you been bothered by any of the following problems? 1. Little interest or pleasure in doing things: not at all 2. Feeling down, depressed, or hopeless: not at all 3. Trouble falling or staying asleep, or sleeping too much: not at all 4. Feeling tired or having little energy: not at all 5. Poor appetite or overeating: not at all 6. Feeling bad about yourself - or that you are a failure or have let yourself or your family down: not at all 7. Trouble concentrating on things, such as reading the newspaper or watching television: not at all 8. Moving or speaking so slowly that other people could have noticed. Or the opposite - being so fidgety or restless that you have been moving around a lot more than usual: not at all 9. Thoughts that you would be better off or of hurting yourself in some way: not at all Total score: 0 Depression Screening Interpretation: Negative Depression Screening Done: Yes 71425 - PHQ-9 Billing: Yes Source: Developed by Drs. Ayad Felipe, Yaritza Kaufman, Serjio Martinez and colleagues, with an educational hailey from [employer]. Thrive Questionnaire Date Thrive assessed: 08/21/24 I am a: Patient What is your living situation today?: I have a steady place to live Within the past 12 months, did the food you bought not last and you didn't have the money to get more?: Never true Within the past 12 months, did you worry whether your food would run out before you got money to buy more?: Never true Do you have trouble paying for medicines?: No Do you have trouble getting transportation to medical appointments?: No Do you have trouble paying your heating and electricity bill?: No Do you have trouble taking care of your child, family member or friend?: No Do you have trouble with day-to-day activities such as bathing, preparing meals, shopping, managing finances, etc.?: No Are you currently unemployed and looking for a job?: No Are you interested in more education?: No Please select the resources that you would like help with: None Currently or been in a relationship where the following occur: No concerns reported THRIVE Score: 0 AUDIT C Alcohol Use Questionnaire (AUDIT-C) 1. How often do you have a drink containing alcohol?: Monthly or less 2. How many drinks containing alcohol do you have on a typical day when you are drinking?: 1 or 2 3. How often do you have six or more drinks on one occasion?: Never Total Score: 1 Score Reviewed/Action Taken: Yes CATA-7 AMB Questionnaire CATA-7 Date CATA - 7 assessed: 08/21/24 Feeling nervous, anxious, or on edge: 0 = Not at all Not being able to stop or control worryin = Not at all Worrying too much about different things: 0 = Not at all Trouble relaxin = Not at all Being so restless that it is hard to sit still: 0 = Not at all Becoming easily annoyed or irritable: 0 = Not at all Feeling afraid as if something awful might happen: 0 = Not at all Total CATA-7 score (0-4 normal; 5-9 mild; 10-14 moderate; 15-21 severe): 0 Source: Developed by Drs. Ayad Felipe, Yaritza Kaufman, Serjio Martinez and colleagues, with an educational hailey from [employer]. Review of Systems Const Denies chills, Reports difficulty sleeping, Denies fatigue, Denies fever(s) and Denies headache(s) ENT Denies dysphagia, Denies dizziness, Denies otalgia, Denies headache(s), Denies neck pain, Denies odynophagia and Denies sore throat Card Denies chest pain, Denies irregular heart rhythm, Denies palpitations and Denies dyspnea Resp Denies chest congestion, Denies cough and Denies dyspnea GI Denies abdominal pain, Denies constipation, Denies dysphagia, Denies heartburn, Denies diarrhea, Denies nausea, Denies odynophagia and Denies vomiting Denies difficulty urinating, Denies dysuria and Denies urinary frequency Musc Denies back pain, Reports arthralgias (on and off in both hands) and Denies neck pain Skin/Breast Denies rash Neuro Denies dizziness, Denies headache(s) and Reports paresthesias (recurrent in both hands and feet) Psych Reports anxiety (increased) Endo Denies fatigue and Denies palpitations Physical exam (Primary Care) Vital Signs: Last Vital Signs Pulse 89 08/21/24 16:53 BP 132/98 H 08/21/24 16:53 Pulse Ox 97 08/21/24 16:53 Oxygen Delivery Method Room Air 08/21/24 16:53 BMI result Body Mass Index 33.7 Tobacco/Smoking Status: Tobacco use Status Tobacco use date assessed 08/21/24 08/21/24 16:56 Patient Tobacco Use Status Never used Tobacco 08/21/24 16:56 e-Cigarette/Vaping Use Never Used 08/21/24 16:56 PHQ-9: PHQ-9 Score PHQ-9: Total score 0 08/21/24 17:24 Depression Screening Interpretation: Negative Thrive Assessment: Date of Thrive Assessment Date Thrive assessed 08/21/24 08/21/24 16:56 Currently or been in a relationship where the following occur: No concerns reported Const General: no acute distress and alert HENMT Ears: TM's normal bilaterally and EAC's normal Throat: Yes posterior oropharynx normal and Yes tonsils normal (no TP congestion) Neck Neck: Yes supple and No lymphadenopathy Thyroid: Thyroid normal Resp Auscultation: clear to auscultation bilaterally, no rales and no wheezes Cardio Rate: regular rate Rhythm: regular rhythm Heart sounds: no murmurs GI Palpation (GI): Soft to palpation and nontender Auscultation: normal bowel sounds General: Yes no CVA tenderness Back/Spine/Pelvis Back: no CVA tenderness Thoracic/Lumbar Spine: No lumbar spinal tenderness Skin Rashes: no rashes Extrem General: Yes no clubbing, cyanosis or edema Results AMB Hemoglobin A1c AMB Hemoglobin A1c 7.4 % Last Edit by CHANELLE Del Rio on 08/21/24 17:16 Results Reviewed Results Reviewed: Laboratory Last Values Hgb A1c (Clinic) 7.4 % (4.0-6.0) H 08/21/24 17:15 Coding Level of Care Code Est Pt Level 4 (80526) Diagnoses Chest discomfort R07.89 Type 2 diabetes mellitus with hyperglycemia, with long-term current use of insulin E11.65; Z79.4 Diabetes mellitus type: type 2 Diabetes mellitus lesson instructor insulin use: with lesson instructor use Diabetes mellitus complication status: with hyperglycemia Mixed hyperlipidemia E78.2 Essential hypertension I10 Paresthesia of both feet R20.2 Bilateral hand pain M79.641; M79.642 Elevated LFTs R79.89 Vitamin D deficiency E55.9 Insomnia, unspecified type G47.00 Insomnia type: unspecified Anxiety F41.9 Obesity (BMI 30-39.9) E66.9 Additional Codes PHQ-9 - 91438 - PHQ-9 Billing: Yes ([id number]) Assessment & Plan Assessment & Plan (1) Chest discomfort: Code(s): R07.89 - Other chest pain Category: Medical Plan: Patient states that his chest discomfort seems to have improved recently - thinks that these may have been due to his anxiety He was sent for cardiac stress testing back when he was last seen in April 2024 and he was scheduled for this on 05/24/2024 but he apparently never went for his appointment Have again advised patient that he should be further evaluated for his symptoms as he is a diabetic and his cardiovascular risks are significantly higher than an average person's We will revisit this again when he is seen in a few months for his annual physical examination (2) Diabetes mellitus: Comment: DM diagnosed in 2022 Code(s): E11.9 - Type 2 diabetes mellitus without complications Category: Medical Qualifiers: Diabetes mellitus type: type 2 Diabetes mellitus intermediate insulin use: with lesson instructor use Diabetes mellitus complication status: with hyperglycemia Qualified Code(s): E11.65 - Type 2 diabetes mellitus with hyperglycemia; Z79.4 - senior living (current) use of insulin Plan: His in-office HgbA1c done today is at 7.4% (was at 7.1% back in April 2024) - goal is at least <7.0% Reinforced diabetic diet - he admits to poor compliance with his diet over the holidays but is now back on his recommended diabetic diet Continue Semglee at 14 units Q HS - am not sure why he is at 14 units when we sent in his previous Rx for 15 units QD Continue Novolog TID with meals per sliding scale as before Patient also requested for a trial of Ozempic Rx last year but he could not tolerate the Rx due to side effects and stopped it after 3 doses (3) Mixed hyperlipidemia: Code(s): E78.2 - Mixed hyperlipidemia Category: Medical Plan: Patient was again not able to get his previously ordered labs done prior to his appointment today - states that he will try to get them done SHADI He is reminded that his serum triglyderide level was back up to 160 mg/dl and his LDL cholesterol was at 103 mg/dl back in August 2023 - his LDL cholesterol should ideally at least be under 100 mg/dl as he is a diabetic - and he has not had his labs done since Reinforced low cholesterol diet Will continue to hold off on Rx for now as his LFTs were slightly elevated on his previous labs but advised that statins are indicated in diabetics irregardless of their cholesterol numbers and we may still need to start him on the Rx at some point (4) Essential hypertension: Code(s): I10 - Essential (primary) hypertension Category: Medical Plan: Reinforced low sodium diet - goal is systolic BP of at least 120 mm or less Continue Lisinopril 10 mg QD (5) Paresthesia of both feet: Code(s): R20.2 - Paresthesia of skin Category: Medical Plan: [place] [facility] [place] [place] came out NORMAL with no evidence of neuropathy CRP, ESR as well as his vitamin B12 level all came back normal when they were previously checked Continue Gabapentin 100 mg BID for now (6) Bilateral hand pain: Code(s): M79.641 - Pain in right hand; M79.642 - Pain in left hand Category: Medical Plan: He was previously sent for x-rays of both hands but he never got them done Arthralgia work ups done last year were negative but his repeat JOSÉ done in August 2023 came back positive He was advised that all of his other tests came back okay and he's had no signs /symptoms of inflammatory joint disease Per patient's request, we referred him to rheumatology for further evaluation and recommendations but the practitioner who was scheduled to see him recently left the practice so he currently still has no appointment with rheumatology scheduled yet (7) Elevated LFTs: Code(s): R79.89 - Other specified abnormal findings of blood chemistry Category: Medical Plan: Patient is again advised that his LFTs were still slightly elevated on his labs when last checked in August 2023 These are most likely related to his weight (steatohepatitis) and should improve/resolve with weight loss Will continue to monitor his LFTs regularly (8) Vitamin D deficiency: Code(s): E55.9 - Vitamin D deficiency, unspecified Category: Medical Plan: Continue Vitamin D3 2000 units QD (9) Insomnia: Code(s): G47.00 - Insomnia, unspecified Category: Medical Qualifiers: Insomnia type: unspecified Qualified Code(s): G47.00 - Insomnia, unspecified Plan: Sleep hygiene reinforced Have advised patient that his anxiety is likely a significant contributor to his difficulty sleeping at night Have discussed trialing him on low dose Trazodone to help him sleep at night but patient recalls taking this in the past and states that he stopped the Rx due to side effects (dry mouth, next day drowsiness) Will start him then for now on Doxepin 10 mg Q HS - advised that this should help both with his sleep and with his anxiety (10) Anxiety: Code(s): F41.9 - Anxiety disorder, unspecified Category: Medical Plan: Will start him on a trial of Doxepin 10 mg Q HS PRN (11) Obesity (BMI 30-39.9): Code(s): E66.9 - Obesity, unspecified Category: Medical Plan: Reinforced diet/exercise as tolerated/lose weight Plan To return as scheduled in October 2024 for his annual physical examination Orders: Orders AMB Hemoglobin A1c 08/21/24 Z13.9 - Encounter for screening, unspecified Medications: New doxepin 10 mg PO BEDTIME 30 days PRN 30 caps 3RF anxiety Changed From Semglee(insulin glarg-yfgn)Pen (insulin glargine-yfgn) 15 units (0.15 mL) subcut QPM 90 days 15 mL 1RF NS To insulin glargine-yfgn (Semglee (insulin glargine-yfgn) Pen) 14 units subcut QPM
== END 2024-08-21 17:33 | disposition home or self-care (01) ==
PROVIDERS: PCP Internal Medicine; Visit Provider Internal Medicine
DX: Z13.9 Encounter for screening, unspecified (principal)

== ENCOUNTER → 2024-08-21 16:44 | Outpatient (BNVA) | payer OTHER, SELFPAY | PROVIDERS: PCP Internal Medicine; Visit Provider Internal Medicine | DX: R07.89 Other chest pain (principal); E11.65 Type 2 diabetes mellitus with hyperglycemia; E78.2 Mixed hyperlipidemia; I10 Essential (primary) hypertension; R20.2 Paresthesia of skin; M79.641 Pain in right hand; M79.642 Pain in left hand; R79.89 Other specified abnormal findings of blood chemistry; E55.9 Vitamin D deficiency, unspecified; G47.00 Insomnia, unspecified; F41.9 Anxiety disorder, unspecified; E66.9 Obesity, unspecified; Z68.33 Body mass index [BMI] 33.0-33.9, adult; Z79.4 Long term (current) use of insulin; Z79.899 Other long term (current) drug therapy | CPT/HCPCS: 83036; 96127 ==

== ENCOUNTER 2025-02-26 16:19 | Outpatient (AMB) | payer OTHER, SELFPAY ==
[2025-02-26 16:33] VITALS: BP 146/70; PULSE 86; RESP 18; TEMP 36.1; O2SAT 97; BMI 33.9
--- NOTE | 2025-02-26 16:33 | A.OFFPC_ITS ---
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 blood-glucose meter (FreeStyle Lite Meter kit) As Directed cholecalciferol (vitamin D3) 50 mcg PO DAILY 90 days doxepin 10 mg PO BEDTIME PRN 30 days gabapentin 100 mg PO BID 30 days ibuprofen 800 mg PO Q8H PRN insulin glargine-yfgn (Semglee (insulin glargine-yfgn) Pen) 14 units subcut QPM lancets (FreeStyle Lancets) Test four times a day or as directed. lisinopril 10 mg PO DAILY 90 days magnesium oxide (MagOx) 400 mg PO DAILY 90 days pen needle, diabetic Use four times a day or as directed. Tobacco use date assessed: 02/26/25 Dental Screening Dental Screen Date: 02/26/25 Did you have a dental visit in the last 12 months?: Yes Did you have a dental problem in the last 6 months where you did not have access to dental care?: No Was dental information given to patient?: Patient has dentist HPI annual exam HPI Details Patient comes in today for his annual physical examination States that he feels okay He denies any headaches or dizziness Denies any chest pains, no shortness of breath No nausea/vomiting, no abdominal pain No change in bowel habits noted He denies any acute urinary symptoms He has not had any follow-up labs done in a while now [facility] Medical History Insomnia Anxiety Essential hypertension Diabetes mellitus Mixed hyperlipidemia Elevated LFTs Obesity (BMI 30-39.9) Hypertension Vitamin D deficiency Surgical History No pertinent past surgical history Family History Father Hypertension Mother No problems noted. Brother No problems noted. Brother No problems noted. Brother No problems noted. Brother No problems noted. Social History Housing: House Alcohol intake: current Alcohol intake frequency: does not drink Patient Tobacco Use Status: Never used Tobacco e-Cigarette/Vaping Use: Never Used Second Hand Smoke Exposure: No service: No Current occupational status: employed Cognitive needs: No Hearing needs: No Vision needs: Yes Questionnaire PHQ-9 Over the last 2 weeks, how often have you been bothered by any of the following problems? 1. Little interest or pleasure in doing things: not at all 2. Feeling down, depressed, or hopeless: not at all 3. Trouble falling or staying asleep, or sleeping too much: not at all 4. Feeling tired or having little energy: not at all 5. Poor appetite or overeating: not at all 6. Feeling bad about yourself - or that you are a failure or have let yourself or your family down: not at all 7. Trouble concentrating on things, such as reading the newspaper or watching television: not at all 8. Moving or speaking so slowly that other people could have noticed. Or the opposite - being so fidgety or restless that you have been moving around a lot more than usual: not at all 9. Thoughts that you would be better off or of hurting yourself in some way: not at all Total score: 0 Depression Screening Interpretation: Negative Depression Screening Done: Yes 33292 - PHQ-9 Billing: Yes Source: Developed by Drs. Ayad Felipe, Yaritza Kaufman, Serjio Martienz and colleagues, with an educational hailey from [employer]. Thrive Questionnaire Date Thrive assessed: 02/26/25 I am a: Patient What is your living situation today?: I have a steady place to live Within the past 12 months, did the food you bought not last and you didn't have the money to get more?: Never true Within the past 12 months, did you worry whether your food would run out before you got money to buy more?: Never true Do you have trouble paying for medicines?: No Do you have trouble getting transportation to medical appointments?: No Do you have trouble paying your heating and electricity bill?: No Do you have trouble taking care of your child, family member or friend?: No Do you have trouble with day-to-day activities such as bathing, preparing meals, shopping, managing finances, etc.?: No Are you currently unemployed and looking for a job?: No Are you interested in more education?: No Please select the resources that you would like help with: None Currently or been in a relationship where the following occur: No concerns reported THRIVE Score: 0 AUDIT C Alcohol Use Questionnaire (AUDIT-C) 1. How often do you have a drink containing alcohol?: Never 3. How often do you have six or more drinks on one occasion?: Never Total Score: 0 Score Reviewed/Action Taken: Yes CATA-7 AMB Questionnaire CATA-7 Date CATA - 7 assessed: 02/26/25 Feeling nervous, anxious, or on edge: 0 = Not at all Not being able to stop or control worryin = Not at all Worrying too much about different things: 0 = Not at all Trouble relaxin = Not at all Being so restless that it is hard to sit still: 0 = Not at all Becoming easily annoyed or irritable: 0 = Not at all Feeling afraid as if something awful might happen: 0 = Not at all Total CATA-7 score (0-4 normal; 5-9 mild; 10-14 moderate; 15-21 severe): 0 Source: Developed by Drs. Ayad Felipe, Yaritza Kaufman, Serjio Martinez and colleagues, with an educational hailey from [employer]. Review of Systems Const Denies chills, Denies fatigue, Denies fever(s), Denies headache(s), Denies malaise and Denies weakness Eyes Denies blurry vision, Denies change in vision, Denies irritation and Denies itchy eyes ENT Denies dysphagia, Denies dizziness, Denies otalgia, Denies headache(s), Denies nasal congestion, Denies neck pain, Denies odynophagia and Denies sore throat Card Denies chest pain, Denies rapid heart rate, Denies irregular heart rhythm, Denies palpitations and Denies dyspnea Resp Denies chest congestion, Denies cough, Denies dyspnea and Denies wheezing GI Denies abdominal pain, Denies bloating, Denies constipation, Denies dysphagia, Denies heartburn, Denies diarrhea, Denies nausea, Denies odynophagia and Denies vomiting Denies hematuria, Denies difficulty urinating, Denies dysuria, Denies urinary frequency and Denies urinary urgency Musc Denies back pain, Denies arthralgias, Denies joint swelling, Denies muscle weakness and Denies neck pain Skin/Breast Denies change in pigmentation, Denies lesions, Denies rash and Denies unusual bruising Neuro Denies dizziness, Denies headache(s), Denies paresthesias and Denies weakness Endo Denies fatigue and Denies palpitations Aller/Immun Denies itchy eyes and Denies wheezing Physical exam (Primary Care) Vital Signs: Last Vital Signs Temp 97 F 02/26/25 16:33 Pulse 86 02/26/25 16:33 Resp 18 02/26/25 16:33 BP 146/70 H 02/26/25 16:33 Pulse Ox 97 02/26/25 16:33 Oxygen Delivery Method Room Air 02/26/25 16:33 BMI result Body Mass Index 33.9 Tobacco/Smoking Status: Tobacco use Status Tobacco use date assessed 02/26/25 02/26/25 16:41 Patient Tobacco Use Status Never used Tobacco 02/26/25 16:41 e-Cigarette/Vaping Use Never Used 02/26/25 16:41 PHQ-9: PHQ-9 Score PHQ-9: Total score 0 02/26/25 16:56 Depression Screening Interpretation: Negative Thrive Assessment: Date of Thrive Assessment Date Thrive assessed 02/26/25 02/26/25 16:41 Currently or been in a relationship where the following occur: No concerns reported Const General: no acute distress, alert and awake Orientation/consciousness: patient oriented x3 HENMT Head: Yes normocephalic and Yes atraumatic Ears: external ears normal, TM's normal bilaterally and EAC's normal General nose exam: No nasal discharge present Face and sinus: Yes normal facial exam and Yes sinuses nontender Teeth and gingiva: dentition normal Throat: Yes posterior oropharynx normal and Yes tonsils normal (no TP congestion) Eyes Eyelids: Yes eyelids normal Conjunctivae: conjunctivae normal Pupils: Equal, round and reactive pupils present EOM: EOMs intact bilaterally Neck Neck: Yes no lymphadenopathy and Yes supple Thyroid: Thyroid normal Resp Auscultation: clear to auscultation bilaterally, no rales and no wheezes Cardio Rate: regular rate Rhythm: regular rhythm Heart sounds: no murmurs GI Palpation (GI): Soft to palpation, nontender and No hepatosplenomegaly present Auscultation: normal bowel sounds General: Yes no CVA tenderness Back/Spine/Pelvis Back: no CVA tenderness Thoracic/Lumbar Spine: thoracic and lumbar spine normal to inspection Skin Lesions: no lesions Rashes: no rashes Neuro General: patient oriented x3, moves all extremities, no focal motor deficits and CN's II-XI intact bilaterally Cranial nerves: Yes Equal, round and reactive pupils present Cognition (Neuro): normal cognition Gait exam (Neuro): Normal gait present Extrem General: Yes no clubbing, cyanosis or edema Coding Level of Care Code Est Pt Prev Care 40-64y(11244) Diagnoses Annual physical exam Z00.00 Type 2 diabetes mellitus with hyperglycemia, with long-term current use of insul in E11.65; Z79.4 Diabetes mellitus complication status: with hyperglycemia Diabetes mellitus alf insulin use: with alf use Diabetes mellitus type: type 2 Mixed hyperlipidemia E78.2 Essential hypertension I10 Paresthesia of both feet R20.2 Bilateral hand pain M79.641; M79.642 Elevated LFTs R79.89 Vitamin D deficiency E55.9 Insomnia, unspecified type G47.00 Insomnia type: unspecified Anxiety F41.9 Obesity (BMI 30-39.9) E66.9 Colon cancer screening Z12.11 Additional Codes PHQ-9 - 74714 - PHQ-9 Billing: Yes ([id number]) Assessment & Plan Assessment & Plan (1) Annual physical exam: Code(s): Z00.00 - Encounter for general adult medical examination without abnormal findings Category: Medical Plan: Check labs He is now due to start screening colonoscopy (2) Diabetes mellitus: Comment: DM diagnosed in 2022 Code(s): E11.9 - Type 2 diabetes mellitus without complications Category: Medical Qualifiers: Diabetes mellitus complication status: with hyperglycemia Diabetes mellitus keno terminal operator insulin use: with keno terminal operator use Diabetes mellitus type: type 2 Qualified Code(s): E11.65 - Type 2 diabetes mellitus with hyperglycemia; Z79.4 - ferry terminal agent (current) use of insulin Plan: His in-office HgbA1c done was at 7.4% back in July 2024 (was previously at 7.1% in April 2024) - goal is at least <7.0% Reinforced diabetic diet Continue Semglee at 14 units Q HS Continue Novolog TID with meals per sliding scale as before Patient also requested for a trial of Ozempic Rx last year but he could not to lerate the Rx due to side effects and stopped it after 3 doses (3) Mixed hyperlipidemia: Code(s): E78.2 - Mixed hyperlipidemia Category: Medical Plan: He is again reminded that his serum triglyderide level was back up to 160 mg/dl and his LDL cholesterol was at 103 mg/dl back in August 2023 - his LDL cholesterol should ideally at least be under 100 mg/dl as he is a diabetic - and he has not had his labs done since Reinforced low cholesterol diet Will continue to hold off on Rx for now as his LFTs were slightly elevated on his previous labs but advised that statins are indicated in diabetics irregardless of their cholesterol numbers and we may still need to start him on the Rx at some point Will have patient go and get his follow-up fasting labs done SHADI (4) Essential hypertension: Code(s): I10 - Essential (primary) hypertension Category: Medical Plan: Reinforced low sodium diet - goal is systolic BP of at least 120 mm or less Continue Lisinopril 10 mg QD (5) Paresthesia of both feet: Code(s): R20.2 - Paresthesia of skin Category: Medical Plan: EMG & NCV done at [facility] in September 2023 came out NORMAL with no evidence of neuropat hy CRP, ESR as well as his vitamin B12 level all came back normal when they were previously checked Continue Gabapentin 100 mg BID for now (6) Bilateral hand pain: Code(s): M79.641 - Pain in right hand; M79.642 - Pain in left hand Category: Medical Plan: He was previously sent for x-rays of both hands but he never got them done Arthralgia work ups done last year were negative but his repeat JOSÉ done in August 2023 came back positive He was advised that all of his other tests came back okay and he's had no signs /symptoms of inflammatory joint disease Per patient's request, we referred him to rheumatology for further evaluation and recommendations but the practitioner who was scheduled to see him recently left the practice so he currently still has no appointment with rheumatology scheduled yet (7) Elevated LFTs: Code(s): R79.89 - Other specified abnormal findings of blood chemistry Category: Medical Plan: Patient is again advised that his LFTs were still slightly elevated on his labs when last checked in August 2023 These are most likely related to his weight (steatohepatitis) and should improve/resolve with weight loss Will continue to monitor his LFTs regularly (8) Vitamin D deficiency: Code(s): E55.9 - Vitamin D deficiency, unspecified Category: Medical Plan: Continue Vitamin D3 2000 units QD (9) Insomnia: Code(s): G47.00 - Insomnia, unspecified Category: Medical Qualifiers: Insomnia type: unspecified Qualified Code(s): G47.00 - Insomnia, unspecified Plan: Sleep hygiene reinforced Have advised patient that his anxiety is likely a significant contributor to his difficulty sleeping at night Have discussed trialing him on low dose Trazodone to help him sleep at night but patient recalls taking this in the past and states that he stopped the Rx due to side effects (dry mouth, next day drowsiness) Continue Doxepin 10 mg Q HS PRN (10) Anxiety: Code(s): F41.9 - Anxiety disorder, unspecified Category: Medical Plan: Continue Doxepin 10 mg Q HS PRN (11) Obesity (BMI 30-39.9): Code(s): E66.9 - Obesity, unspecified Category: Medical Plan: Reinforced diet/exercise as tolerated/lose weight (12) Colon cancer screening: Code(s): Z12.11 - Encounter for screening for malignant neoplasm of colon Category: Medical Plan: Will refer patient to GI for screening colonoscopy Plan Follow up in 4 months Orders: Orders Complete Blood Count Auto Diff 02/26/25 D64.9 - Anemia, unspecified, Z00.00 - Encounter for general adult medical examination without abnormal findings Comprehensive Leary. Panel Fast 02/26/25 E78.00 - Pure hypercholesterolemia, unspecified, Z00.00 - Encounter for general adult medical examination without abnormal findings Lipid Panel 02/26/25 E78.00 - Pure hypercholesterolemia, unspecified, Z00.00 - Encounter for general adult medical examination without abnormal findings Hemoglobin A1c 02/26/25 E11.9 - Type 2 diabetes mellitus without complications, Z00.00 - Encounter for general adult medical examination without abnormal findings Vitamin B12 and Folate 02/26/25 E53.8 - Deficiency of other specified B group vitamins, Z00.00 - Encounter for general adult medical examination without abnormal findings Microalbumin, Random (w Creat) 02/26/25 E11.9 - Type 2 diabetes mellitus without complications, Z00.00 - Encounter for general adult medical examination without abnormal findings TSH reflex Free T4 02/26/25 E78.00 - Pure hypercholesterolemia, unspecified, Z00.00 - Encounter for general adult medical examination without abnormal findings UA CC w/rflx Micro + Cult 02/26/25 R30.0 - Dysuria, Z00.00 - Encounter for general adult medical examination without abnormal findings Vitamin D 25-OH Total 02/26/25 E55.9 - Vitamin D deficiency, unspecified, Z00.00 - Encounter for general adult medical examination without abnormal findings Prostate Specific Antigen Scr 02/26/25 Z00.00 - Encounter for general adult medical examination without abnormal findings Testosterone, Free/Total 02/26/25 R79.89 - Other specified abnormal findings of blood chemistry Referrals Gastroenterology Referral Z12.11 - Encounter for screening for malignant neoplasm of colon
== END 2025-02-26 17:04 | disposition home or self-care (01) ==
LOC: HO.HMCH 16:20
PROVIDERS: PCP Internal Medicine; Visit Provider Internal Medicine
DX: Z00.00 Encounter for general adult medical examination without abnormal findings (principal); E11.65 Type 2 diabetes mellitus with hyperglycemia; Z79.4 Long term (current) use of insulin; E66.9 Obesity, unspecified; Z68.33 Body mass index [BMI] 33.0-33.9, adult; E78.2 Mixed hyperlipidemia; I10 Essential (primary) hypertension; R20.2 Paresthesia of skin; M79.641 Pain in right hand; M79.642 Pain in left hand; R79.89 Other specified abnormal findings of blood chemistry; E55.9 Vitamin D deficiency, unspecified

== ENCOUNTER → 2025-02-26 16:19 | Outpatient (BNVA) | payer OTHER, SELFPAY | PROVIDERS: PCP Internal Medicine; Visit Provider Internal Medicine | DX: Z00.00 Encounter for general adult medical examination without abnormal findings (principal); E11.65 Type 2 diabetes mellitus with hyperglycemia; E78.2 Mixed hyperlipidemia; I10 Essential (primary) hypertension; R20.2 Paresthesia of skin; M79.641 Pain in right hand; M79.642 Pain in left hand; E55.9 Vitamin D deficiency, unspecified; G47.00 Insomnia, unspecified; F41.9 Anxiety disorder, unspecified; E78.00 Pure hypercholesterolemia, unspecified; E53.8 Deficiency of other specified B group vitamins; R30.0 Dysuria; R79.89 Other specified abnormal findings of blood chemistry; E66.9 Obesity, unspecified; Z68.33 Body mass index [BMI] 33.0-33.9, adult; Z79.4 Long term (current) use of insulin | CPT/HCPCS: 96127 ==

== ENCOUNTER 2025-07-06 07:42 | Outpatient (REF) | payer OTHER, SELFPAY ==
[2025-07-06 08:48] LABS: MANUAL DIFF FLAG NO
[2025-07-06 10:18] LABS: Hematocrit 47.6 % (42.0-52.0); Hemoglobin 16.6 g/dl (14.0-18.0); Imm Gran Abs Auto 0.03 X10*3/uL (0.00-0.03); Imm Gran Pct Auto 0.5 % (0.0-0.4); Lymphocytes Absolute Auto 1.7 X10*3/uL (1.2-4.9); Mean Corpuscular HGB Conc 34.9 g/dl (31.0-36.0); Mean Corpuscular Hemoglobin 30.4 pg (27.0-33.0); Mean Corpuscular Volume 87.2 fL (80.0-98.0); NRBC Abs Auto 0.000 X10*3/uL (0.0-0.012); NRBC Pct Auto 0.0 /100WBC (0.0-0.2); Platelet Count 217 X10*3/uL (160-400); Red Blood Count 5.46 X10*6/uL (4.60-5.80); White Blood Count 6.3 X10*3/uL (4.8-10.8)
[2025-07-06 10:26] LABS: Hemoglobin A1C 148.8162 umol/L
[2025-07-06 11:07] LABS: Alanine Aminotransferase 57 U/L (0-40); Albumin Level 4.2 g/dL (3.5-5.0); Alkaline Phosphatase 96 U/L (39-117); Anion Gap 13 (12-20); Aspartate Amino Transferase 39 U/L (5-37); Blood Urea Nitrogen 12 mg/dL (9-16); Calcium 8.6 mg/dL (8.4-10.2); Carbon Dioxide 27 mmol/L (22-29); Chloride 104 mmol/L (96-108); Cholesterol 159 mg/dL (<200); Estimated Glomerular Filt Rate > 60; HDL Cholesterol 35 mg/dL (>40); Potassium 3.6 mmol/L (3.3-5.1); Sodium 140 mmol/L (135-145); Total Protein 7.2 g/dL (6.5-8.0); Triglycerides 105 mg/dL (<150)
[2025-07-06 11:23] LABS: Folate 9.4 ng/mL (> or = 4.0); Vitamin B12 219 pg/mL (200-900)
[2025-07-06 11:24] LABS: Appearance Urine Clear; Glucose Urine UA Negative (Negative); PH 6.5 (5.0-9.0); Specific Gravity - Urine 1.020 (1.005-1.025)
[2025-07-06 11:46] LABS: Microalbum/Creatinine Ratio Ur 5.7 ug/mg cr (<30)
== END 2025-07-06 07:43 | disposition home or self-care (01) ==
LOC: HO.LAB 07:42
PROVIDERS: PCP Internal Medicine; Visit Provider Internal Medicine
DX: Z00.00 Encounter for general adult medical examination without abnormal findings (principal); E78.00 Pure hypercholesterolemia, unspecified; E53.8 Deficiency of other specified B group vitamins; E11.9 Type 2 diabetes mellitus without complications; D64.9 Anemia, unspecified; R30.0 Dysuria; E55.9 Vitamin D deficiency, unspecified; R79.89 Other specified abnormal findings of blood chemistry; Z12.5 Encounter for screening for malignant neoplasm of prostate
CPT/HCPCS: 36415; 80053; 80061; 81003; 82043; 82306; 82570; 82607; 82746; 83036; 84153; 84402; 84403; 84443; 85025

== ENCOUNTER 2025-07-08 16:28 | Outpatient (AMB) | payer OTHER, SELFPAY ==
[2025-07-08 16:31] VITALS: BP 124/90; PULSE 81; O2SAT 96; BMI 32.8
--- NOTE | 2025-07-08 16:31 | MHC.PC.OV ---
Vital Signs 07/08/25 16:31 Height 5 ft 9 in Weight 222 lb 6 oz BMI 32.8 BP 124/90 H Blood Pressure Location Lt brachial Position Sitting Pulse 81 Pulse Source Pulse Oximeter Pulse Oximetry (%) 96 Oxygen Delivery Method Room Air Intake Visit Reasons: DM Heel Seat Sander Required: No Accompanied by: Self / Same As Patient Allergies semaglutide (From Ozempic) Adverse Reaction (Intermediate, Verified 07/08/25 16:59) abdominal pain, vomiting, dizziness Medication List - Last Reconciled 07/08/25 by Huber Hill MD acetaminophen 1,000 mg (2 x 500 mg) PO Q6H PRN alcohol swabs 1 pad topical QIDACHS blood sugar diagnostic (FreeStyle Lite Strips) Test four times a day or as directed. blood-glucose meter (FreeStyle Lite Meter kit) As Directed cholecalciferol (vitamin D3) 50 mcg PO DAILY 90 days doxepin 10 mg PO BEDTIME PRN 30 days gabapentin 100 mg PO BID 30 days ibuprofen 800 mg PO Q8H PRN insulin glargine-yfgn (Semglee (insulin glargine-yfgn) Pen) 14 units subcut QPM lancets (FreeStyle Lancets) Test four times a day or as directed. lisinopril 10 mg PO DAILY 90 days magnesium oxide (MagOx) 400 mg PO DAILY 90 days pen needle, diabetic Use four times a day or as directed. Tobacco use date assessed: 07/08/25 Dental Screening Dental Screen Date: 07/08/25 Did you have a dental visit in the last 12 months?: Yes Did you have a dental problem in the last 6 months where you did not have access to dental care?: No Was dental information given to patient?: Patient has dentist HPI DM HPI Details Patient comes in today for his follow up visit States that he feels okay He continues to complain of a small painful 'bump' on his right hand - states that this has been going on for a while now and he thinks that he may have something (suspect a piece of metal) that got into his hand a while back and is still in there He denies any headaches or dizziness Denies any chest pains, no shortness of breath No nausea/vomiting, no abdominal pain No change in bowel habits noted He had his follow up labs done a couple of days ago - to discuss his results PFSH Medical History (Updated 07/15/25 @ 03:38 by Huber Hill MD) Vitamin B12 deficiency Insomnia Anxiety Essential hypertension Diabetes mellitus Mixed hyperlipidemia Elevated LFTs Obesity (BMI 30-39.9) Hypertension Vitamin D deficiency Surgical History No pertinent past surgical history Family History Father Hypertension Mother No problems noted. Brother No problems noted. Brother No problems noted. Brother No problems noted. Brother No problems noted. Social History Housing: House Alcohol intake: current Alcohol intake frequency: does not drink Patient Tobacco Use Status: Never used Tobacco e-Cigarette/Vaping Use: Never Used Second Hand Smoke Exposure: No service: No Current occupational status: employed Cognitive needs: No Hearing needs: No Vision needs: Yes Questionnaire PHQ-9 Over the last 2 weeks, how often have you been bothered by any of the following problems? 1. Little interest or pleasure in doing things: not at all 2. Feeling down, depressed, or hopeless: not at all 3. Trouble falling or staying asleep, or sleeping too much: not at all 4. Feeling tired or having little energy: not at all 5. Poor appetite or overeating: not at all 6. Feeling bad about yourself - or that you are a failure or have let yourself or your family down: not at all 7. Trouble concentrating on things, such as reading the newspaper or watching television: not at all 8. Moving or speaking so slowly that other people could have noticed. Or the opposite - being so fidgety or restless that you have been moving around a lot more than usual: not at all 9. Thoughts that you would be better off or of hurting yourself in some way: not at all Total score: 0 Depression Screening Interpretation: Negative Depression Screening Done: Yes 53617 - PHQ-9 Billing: Yes Source: Developed by Drs. Ayad Felipe, Yaritza Kaufman, Serjio Martinez and colleagues, with an educational hailey from [employer]. Thrive Questionnaire Date Thrive assessed: 07/08/25 I am a: Patient What is your living situation today?: I have a steady place to live Within the past 12 months, did the food you bought not last and you didn't have the money to get more?: Never true Within the past 12 months, did you worry whether your food would run out before you got money to buy more?: Never true Do you have trouble paying for medicines?: No Do you have trouble getting transportation to medical appointments?: No Do you have trouble paying your heating and electricity bill?: No Do you have trouble taking care of your child, family member or friend?: No Do you have trouble with day-to-day activities such as bathing, preparing meals, shopping, managing finances, etc.?: No Are you currently unemployed and looking for a job?: No Are you interested in more education?: No Please select the resources that you would like help with: None Currently or been in a relationship where the following occur: No concerns reported THRIVE Score: 0 AUDIT C Alcohol Use Questionnaire (AUDIT-C) 1. How often do you have a drink containing alcohol?: Never 3. How often do you have six or more drinks on one occasion?: Never Total Score: 0 Score Reviewed/Action Taken: Yes CATA-7 AMB Questionnaire CATA-7 Date CATA - 7 assessed: 07/08/25 Feeling nervous, anxious, or on edge: 0 = Not at all Not being able to stop or control worryin = Not at all Worrying too much about different things: 0 = Not at all Trouble relaxin = Not at all Being so restless that it is hard to sit still: 0 = Not at all Becoming easily annoyed or irritable: 0 = Not at all Feeling afraid as if something awful might happen: 0 = Not at all Total CATA-7 score (0-4 normal; 5-9 mild; 10-14 moderate; 15-21 severe): 0 Source: Developed by Drs. Ayad Felipe, Yaritza Kaufman, Serjio Martinez and colleagues, with an educational hailey from [employer]. Review of Systems Const Denies chills, Denies fatigue, Denies fever(s) and Denies headache(s) ENT Denies dysphagia, Denies dizziness, Denies otalgia, Denies headache(s), Denies neck pain, Denies odynophagia and Denies sore throat Card Denies rapid heart rate, Denies irregular heart rhythm, Denies palpitations and Denies dyspnea Resp Denies chest congestion, Denies cough and Denies dyspnea GI Denies abdominal pain, Denies constipation, Denies dysphagia, Denies heartburn, Denies diarrhea, Denies nausea, Denies odynophagia and Denies vomiting Denies difficulty urinating, Denies dysuria, Denies nocturia and Denies urinary frequency Musc Denies back pain, Reports arthralgias (in both hands) and Denies neck pain Skin/Breast Denies rash Neuro Denies dizziness, Denies headache(s) and Denies paresthesias Endo Denies fatigue and Denies palpitations Physical exam (Primary Care) Vital Signs: Last Vital Signs Pulse 81 07/08/25 16:31 BP 124/90 H 07/08/25 16:31 Pulse Ox 96 07/08/25 16:31 Oxygen Delivery Method Room Air 07/08/25 16:31 BMI result Body Mass Index 32.8 Tobacco/Smoking Status: Tobacco use Status Tobacco use date assessed 07/08/25 07/08/25 16:34 Patient Tobacco Use Status Never used Tobacco 07/08/25 16:34 e-Cigarette/Vaping Use Never Used 07/08/25 16:34 PHQ-9: PHQ-9 Score PHQ-9: Total score 0 07/08/25 17:04 Depression Screening Interpretation: Negative Thrive Assessment: Date of Thrive Assessment Date Thrive assessed 07/08/25 07/08/25 16:34 Currently or been in a relationship where the following occur: No concerns reported Const General: no acute distress and alert HENMT Ears: TM's normal bilaterally and EAC's normal Throat: Yes posterior oropharynx normal and Yes tonsils normal (no TP congestion) Neck Neck: Yes supple and No lymphadenopathy Thyroid: Thyroid normal Resp Auscultation: clear to auscultation bilaterally, no rales and no wheezes Cardio Rate: regular rate Rhythm: regular rhythm Heart sounds: no murmurs GI Palpation (GI): Soft to palpation and nontender Auscultation: normal bowel sounds General: Yes no CVA tenderness Back/Spine/Pelvis Back: no CVA tenderness Thoracic/Lumbar Spine: No lumbar spinal tenderness Skin Rashes: no rashes Extrem General: Yes no clubbing, cyanosis or edema Results Reviewed Results Reviewed: Laboratory Tests 07/06/25 07/06/25 08:31 08:46 WBC 6.3 Hgb 16.6 Hct 47.6 Plt Count 217 Sodium 140 Potassium 3.6 Creatinine 0.88 Estimated GFR > 60 Fasting Glucose 135 H Hemoglobin A1c % 7.0 H Calcium 8.6 AST 39 H ALT 57 H Triglycerides 105 Cholesterol 159 LDL Cholesterol, Calc 103 H HDL Cholesterol 35 L PSA Screen 0.64 Vitamin B12 219 25-OH Vitamin D Total 23.9 L TSH 1.56 Ur Specific [place] 1.020 Urine Protein Negative Urine Glucose (UA) Negative Urine Blood Negative Urine Nitrite Negative Ur Leukocyte Esterase Negative Microalb/Creat Ratio 5.7 Coding Level of Care Code Est Pt Level 4 (10424) Add On Problem Visit Only Diagnoses Foreign body in hand, unspecified laterality, sequela S60.559S Encounter type: sequela Laterality: unspecified laterality Type 2 diabetes mellitus with hyperglycemia, with long-term current use of insulin E11.65; Z79.4 Diabetes mellitus type: type 2 Diabetes mellitus residential insulin use: with terminal system operator use Diabetes mellitus complication status: with hyperglycemia Mixed hyperlipidemia E78.2 Essential hypertension I10 Paresthesia of both feet R20.2 Vitamin B12 deficiency E53.8 Elevated LFTs R79.89 Vitamin D deficiency E55.9 Insomnia, unspecified type G47.00 Insomnia type: unspecified Anxiety F41.9 Obesity (BMI 30-39.9) E66.9 Additional Codes PHQ-9 - 89330 - PHQ-9 Billing: Yes ([id number]) Assessment & Plan Assessment & Plan (1) Foreign body in hand: Code(s): S60.559A - Superficial foreign body of unspecified hand, initial encounter Category: Medical Qualifiers: Encounter type: sequela Laterality: unspecified laterality Qualified Code(s): S60.559S - Superficial foreign body of unspecified hand, sequela Plan: Will send patient for x-rays for further evaluation; as he has been experiencing increased pain in both hands often, will have him get x-rays of both hands done (2) Diabetes mellitus: Comment: DM diagnosed in 2022 Code(s): E11.9 - Type 2 diabetes mellitus without complications Category: Medical Qualifiers: Diabetes mellitus type: type 2 Diabetes mellitus terminal system operator insulin use: with residential use Diabetes mellitus complication status: with hyperglycemia Qualified Code(s): E11.65 - Type 2 diabetes mellitus with hyperglycemia; Z79.4 - regional intermodal truck driver (current) use of insulin Plan: HgbA1c was at 7.0% on his labs done a few days ago (his in-office HgbA1c was previously at 7.4% back in July 2024) - goal is at least <7.0% Reinforced diabetic diet Continue Semglee at 15 units Q HS and Novolog TID with meals per sliding scale Patient also requested for a trial of Ozempic Rx last year but he could not tolerate the Rx due to side effects and stopped it after 3 doses (3) Mixed hyperlipidemia: Code(s): E78.2 - Mixed hyperlipidemia Category: Medical Plan: Results of his labs done a few days ago reviewed and discussed with patient Reinforced low cholesterol diet Will continue to hold off on Rx for now as his LFTs were slightly elevated on his previous labs but advised that statins are indicated in diabetics irregardless of one's cholesterol numbers and we may still need to start him on the Rx at some point Will recheck his labs and fasting lipids in 3 months for follow up (4) Essential hypertension: Code(s): I10 - Essential (primary) hypertension Category: Medical Plan: Reinforced low sodium diet - goal is systolic BP of at least 120 mm or less Continue Lisinopril 10 mg QD (5) Paresthesia of both feet: Code(s): R20.2 - Paresthesia of skin Category: Medical Plan: EMG & [place]CV done at [facility] [place] 20[place] came out NORMAL with no evidence of neuropathy CRP, ESR as well as his vitamin B12 level all came back normal when they were previously checked but his Vitamin B12 level came back borderline low on his recent labs Continue Gabapentin 100 mg BID (6) Vitamin B12 deficiency: Code(s): E53.8 - Deficiency of other specified B group vitamins Category: Medical Plan: Will start patient on Vitamin B12 1000 mcg QD (7) Elevated LFTs: Code(s): R79.89 - Other specified abnormal findings of blood chemistry Category: Medical Plan: Patient's LFTs were still slightly elevated on his recent labs - these are most likely related to his weight (steatohepatitis) and should improve/resolve with weight loss Will continue to monitor his LFTs regularly (8) Vitamin D deficiency: Code(s): E55.9 - Vitamin D deficiency, unspecified Category: Medical Plan: Will start him back on Vitamin D3 2000 units QD as his Vitamin D level remains low on his recent labs (9) Insomnia: Code(s): G47.00 - Insomnia, unspecified Category: Medical Qualifiers: Insomnia type: unspecified Qualified Code(s): G47.00 - Insomnia, unspecified Plan: Sleep hygiene reinforced Have advised patient that his anxiety is likely a significant contributor to his difficulty sleeping at night Have discussed trialing him on low dose Trazodone to help him sleep at night but patient recalls taking this in the past and states that he stopped the Rx due to side effects (dry mouth, next day drowsiness) Continue Doxepin 10 mg Q HS PRN (10) Anxiety: Code(s): F41.9 - Anxiety disorder, unspecified Category: Medical Plan: Continue Doxepin 10 mg Q HS PRN (11) Obesity (BMI 30-39.9): Code(s): E66.9 - Obesity, unspecified Category: Medical Plan: Reinforced diet/exercise as tolerated/lose weight Plan Follow up in 3 months Orders: Orders Comprehensive [place]. Panel Fast 3 Months E78.00 - Pure hypercholesterolemia, unspecified Lipid Panel 3 Months E78.00 - Pure hypercholesterolemia, unspecified TSH reflex Free T4 3 Months E78.00 - Pure hypercholesterolemia, unspecified XR Hand Bilat min 3v 12/15/25 M79.641 - Pain in right hand, M79.642 - Pain in left hand, S60.559A - Superficial foreign body of unspecified hand, initial encounter Hemoglobin A1c 3 Months E11.9 - Type 2 diabetes mellitus without complications Complete Blood Count Auto Diff 3 Months D64.9 - Anemia, unspecified Microalbumin, Random (w Creat) 3 Months E11.9 - Type 2 diabetes mellitus without complications UA CC w/rflx Micro + Cult 3 Months R30.0 - Dysuria Vitamin B12 and Folate 3 Months E53.8 - Deficiency of other specified B group vitamins Vitamin D 25-OH Total 3 Months E55.9 - Vitamin D deficiency, unspecified Medications: New cholecalciferol (vitamin D3) 50 mcg PO DAILY 90 caps 3RF 90 days E55.9 - Vitamin D deficiency, unspecified cyanocobalamin (vitamin B-12) 1,000 mcg PO DAILY 90 tabs 3RF 90 days Changed From insulin glargine-yfgn 14 units subcut QPM To insulin glargine-yfgn (Semglee (insulin glargine-yfgn) Pen) 15 units (0.15 mL) subcut QPM 15 mL 1RF 3 months Refilled lisinopril 10 mg PO DAILY 90 tabs 3RF 90 days
== END 2025-07-08 17:18 | disposition home or self-care (01) ==
LOC: HO.HMCH 16:29
PROVIDERS: PCP Internal Medicine; Visit Provider Internal Medicine
DX: S60.55 Superficial foreign body of hand (principal); E11.65 Type 2 diabetes mellitus with hyperglycemia; Z79.4 Long term (current) use of insulin; E78.2 Mixed hyperlipidemia; I10 Essential (primary) hypertension; R20.2 Paresthesia of skin; E53.8 Deficiency of other specified B group vitamins; R79.89 Other specified abnormal findings of blood chemistry; E55.9 Vitamin D deficiency, unspecified; G47.00 Insomnia, unspecified; F41.9 Anxiety disorder, unspecified; E66.9 Obesity, unspecified

== ENCOUNTER → 2025-07-08 16:28 | Outpatient (BNVA) | payer OTHER, SELFPAY | PROVIDERS: PCP Internal Medicine; Visit Provider Internal Medicine | DX: S60.55 Superficial foreign body of hand (principal); E11.65 Type 2 diabetes mellitus with hyperglycemia; E78.2 Mixed hyperlipidemia; I10 Essential (primary) hypertension; R20.2 Paresthesia of skin; E53.8 Deficiency of other specified B group vitamins; R79.89 Other specified abnormal findings of blood chemistry; E55.9 Vitamin D deficiency, unspecified; G47.00 Insomnia, unspecified; F41.9 Anxiety disorder, unspecified; E66.9 Obesity, unspecified; Z79.4 Long term (current) use of insulin; Z68.32 Body mass index [BMI] 32.0-32.9, adult | CPT/HCPCS: 96127 ==